=== PATIENT | female | born 1965 | race Caucasian/White ===

== ENCOUNTER 2024-08-26 09:19 | Emergency (ER) | payer OTHER, MEDICAID, SELFPAY ==
[2024-08-26 09:22] VITALS: BMI 53.1
[2024-08-26 09:31] VITALS: BP 166/105; PULSE 100; RESP 19; TEMP 36.9; O2SAT 95
--- NOTE | 2024-08-26 09:31 | EDNOTE_ITS ---
Upper Extremity Injury RME/HPI General Chief Complaint: Extremity Injury, Upper Stated Complaint: RIGHT WRIST INJURY FROM A FALL Time Seen by Provider: 08/26/24 09:23 Source: patient, RN notes reviewed and old records reviewed Arrival date/time: 08/26/24 09:19 Mode of arrival: ambulatory Limitations: no limitations RME / HPI RME / HPI narrative: 59yof presents to ED for wrist pain s/p injury this morning. Patient reports mechanical trip and fall at home landing on outstretched right wrist. No deformity or numbness/tingling reported. 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 Related Data Home Medications ?Medication ?Instructions ?Recorded ?Confirmed alprazolam 1 mg tablet 0.5 - 1 mg PO QDAY PRN Anxiety 12/03/21 07/02/24 nifedipine 60 mg tablet,extended 60 mg PO QDAY 12/03/21 07/02/24 release 24 hr pregabalin 100 mg capsule 100 mg PO TID 12/03/21 07/02/24 tizanidine 4 mg tablet 4 mg PO BID 12/03/21 07/02/24 albuterol sulfate 90 mcg/actuation 2 puff inhalation TID 01/07/23 07/02/24 aerosol inhaler duloxetine 60 mg capsule,delayed 60 mg PO BID 01/07/23 07/02/24 release lisinopril 40 mg tablet (Zestril) 40 mg PO QDAY 01/07/23 07/02/24 buspirone 30 mg tablet 30 mg PO BID 01/29/23 07/02/24 montelukast 10 mg tablet 10 mg PO HS 01/29/23 07/02/24 oxybutynin chloride 5 mg tablet 5 mg PO BID 01/29/23 07/02/24 rosuvastatin 20 mg tablet 20 mg PO QDAY 01/29/23 07/02/24 trazodone 100 mg tablet 50 mg PO HS PRN Insomnia 01/29/23 07/02/24 hydrochlorothiazide 12.5 mg tablet 12.5 mg PO QDAY 09/27/23 07/02/24 omeprazole 40 mg capsule,delayed 40 mg PO QDAY 09/27/23 07/02/24 release Previous Rx's ?Medication ?Instructions ?Recorded ipratropium 0.5 mg-albuterol 3 mg 3 ml inhalation QID PRN shortness 02/01/23 (2.5 mg base)/3 mL nebulization of breath or wheezing #180 mL soln hydrocodone 5 mg-acetaminophen 325 1 tab PO Q8H PRN pain #7 tabs 07/05/24 mg tablet acetaminophen 500 mg tablet 1,000 mg (2 x 500 mg) PO Q6H PRN 08/26/24 (Tylenol Extra Strength) pain #30 tabs ibuprofen 600 mg tablet 600 mg PO Q6H PRN pain #30 tabs 08/26/24 Allergies Allergy/AdvReac Type Severity Reaction Status Date / Time No Known Allergies Allergy Verified 11/23/22 07:52 Review of Systems Review of Systems Systems Reviewed: All systems reviewed, normal except as documented Musculoskeletal Musculoskeletal: Reports arthralgias, Reports joint swelling, Reports limited range of motion, Denies numbness and Denies tingling Neurologic Neurologic: Denies numbness and Denies tingling Past Medical History Past Medical History NEUROLOGIC: Positive Head Trauma CARDIAC: Positive Angina (with cough and copd.), Hypercholesterolemia, Edema (occasionally) and Hypertension RESPIRATORY: Positive Chronic Obstructive Pulmonary Disease (COPD), Asthma, Bronchitis, Pneumonia and Sleep Apnea GASTROINTESTINAL: Positive Gastrointestinal Disorders (constipation.), Hiatal Hernia, Hemorrhoids, Gastroesophageal Reflux Disease and Obesity REPRODUCTIVE: Positive Previous Pregnancies (1 , x2 miscarriages) MUSCULOSKELETAL: Positive Musculoskeletal Disorders (broken screw in neck, surgeryx2 to neck), Arthritis, Carpal Tunnel Syndrome, Fractures and Degenerative Joint Disease ENT: Positive Cataracts and Head Trauma HEMATOLOGIC: Positive Blood Disorders and Anemia (resolved with iron infusions.) PSYCHO/SOCIAL: Positive Depression and Anxiety OTHER HISTORY: Positive Hospitalization, Blood Transfusions (x3), Chicken Pox, Measles and Mumps Family History FAMILY HISTORY: Positive Family Respiratory Disorders, Family Cardiac Disorders (brother had ND, mother has stents.) and Family Surgery Surgical History SURGICAL: Positive Tonsillectomy, Abdominal Surgery, Joint Replacement (to left elbow.), Hysterectomy and Tubal Ligation Social History SMOKING STATUS: Former smoker SECOND HAND EXPOSURE: No SUBSTANCE USE: does not use ED Exam General Limitations: Present no limitations General appearance: Present alert, in no apparent distress and obese Head Head exam: Present atraumatic and normocephalic Eye Eye exam: Present normal appearance, PERRL and EOMI ENT ENT exam: Present normal exam and mucous membranes moist Neck Neck exam: Present normal inspection and full ROM Chest Chest inspection: Present normal inspection and symmetric chest wall rise Respiratory Respiratory exam: Present normal lung sounds bilaterally; Absent respiratory distress Cardiovascular Cardiovascular exam: Present regular rate and normal rhythm Extremities Exam Extremities exam: Present other (Mild tenderness and swelling to right wrist. Limited ROM 2/2 pain. Able to wiggle all fingers. 2+ radial pulses, sensation intact) Neurological Exam Neurological exam: Present alert and oriented X3 Psychiatric Psychiatric exam: Present normal affect and normal mood Skin Skin exam: Present warm, dry, intact and normal color Course Quality Measures none Orders Category Date Time Status Splint / Immobilizer STAT Care 08/26/24 10:53 Completed XR wrist comp RT min 3V Stat Exams 08/26/24 09:32 Completed HYDROcodone*/APAP 7.5/325 [[place] 7.5/325] Med 08/26/24 09:32 Discontinued 1 tab PO X1 ONE Ketorolac Inj [Toradol Inj] Med 08/26/24 10:55 Discontinued 30 mg IM X1 ONE Vital Signs Vital signs: Vital Signs Temperature 98.5 F 08/26/24 09:31 Pulse Rate 100 08/26/24 09:31 Respiratory Rate 19 08/26/24 09:31 Blood Pressure 166/105 H 08/26/24 09:31 Pulse Oximetry (%) 95 08/26/24 09:31 Oxygen Delivery Method Room Air 08/26/24 09:31 Procedures -ED Splint Fabrication: Clinician Made Type: Volar Reason for Splint: Improve Function, Pain Management, Prevent Deformities and Support Joint/Muscle Circulation Distal to Splint: Yes Movement Distal to Splint: Yes Senation Distal to Splint: Yes Tolerance: Tolerates Well Extremity Injury MDM Narrative MDM Narrative:: 59yof presents to ED for wrist pain s/p injury this morning. Patient reports mechanical trip and fall at home landing on outstretched right wrist. No deformity or numbness/tingling reported. 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 Patient is neurovascularly intact, compartments soft. Encouraged RICE therapy, motrin/tylenol prn pain. Ortho referral given for follow up and further mgmt. Stable for dc, RTED precautions given. Patient data External records reviewed:: [facility] previous records (07/02/2024 ED visit for renal injury) Clinical information provided by:: patient Social determinants that could affect healthcare access:: none Patient has the following chronic illnesses:: Obesity arthritis, DJD How is presenting disease/condition affected by chronic disease/condition?: exacerbated by Evaluation data The following diagnostics were reviewed and interpreted by me:: radiology exam(s) Lab and/or radiology exams considered but not ordered:: None Interpretation Summary: Wrist x-rays: Distal radius fracture per my read Medications / Prescriptions Medications or Prescriptions considered but not ordered:: None Medication administrations:: Medication Administration History Discontinued Medications Hydrocodone Bitart/Acetaminophen (Hydrocodone/[place] 7.5/325 Tablet) 1 tab PO X1 ONE Stop: 08/26/24 09:33 Last Admin: 08/26/24 09:42 Dose: 1 tab Documented By: AZUCENA Ketorolac Tromethamine (Ketorolac Inj 60 Mg/2 Ml Vial) 30 mg IM X1 ONE Stop: 08/26/24 10:56 Last Admin: 08/26/24 11:22 Dose: 30 mg Documented By: AZUCENA Above medication administered in ED Consultations Consultation(s) initiated? (list below): No Diagnosis Upper Extremity Injury Differential Diagnosis: other (Fracture, sprain, strain, contusion, MSK pain) Most likely diagnosis given after review of the tests above:: Distal radius fracture Admission Indicated Admission indicated?: not indicated Admission Request Was there a request for admission?: No Disposition Plan Disposition Plan: Discharge Discharge Attestation Discharge Attestation: The patient and all family members were given an opportunity to ask questions and understood the discharge instructions. Discharge instructions specifically effects, indications for sooner follow up or return to the emergency department, and the expected course of current diagnosis. Patient condition: Stable Discharge Plan Plan Patient Disposition: HOME (Self Care) Patient condition on transfer: Stable Prescriptions/Referrals Prescriptions/Med Rec: New ibuprofen 600 mg tablet 600 mg PO Q6H PRN (Reason: pain) Qty: 30 0RF acetaminophen [Tylenol Extra Strength] 500 mg tablet 1,000 mg PO Q6H PRN (Reason: pain) Qty: 30 0RF No Action alprazolam 1 mg tablet 0.5 - 1 mg PO QDAY PRN (Reason: Anxiety) Hold Instructions: Resume on 01/08/23. Patient Comments: TAKE 1/2-1 TABLET BY MOUTH EVERY DAY NEEDED tizanidine 4 mg tablet 4 mg PO BID nifedipine 60 mg tablet extended release 24 hr 60 mg PO QDAY pregabalin 100 mg capsule 100 mg PO TID Patient Comments: TAKE 1 CAPSULE BY MOUTH THREE TIMES A DAY trazodone 100 mg tablet 50 mg PO HS PRN (Reason: Insomnia) Rx Instructions: 50mg at bedtime as needed buspirone 30 mg tablet 30 mg PO BID montelukast 10 mg tablet 10 mg PO HS oxybutynin chloride 5 mg tablet 5 mg PO BID rosuvastatin 20 mg tablet 20 mg PO QDAY ipratropium-albuterol 0.5 mg-3 mg(2.5 mg base)/3 mL solution for nebulization 3 ml inhalation QID PRN (Reason: shortness of breath or wheezing) Qty: 180 0RF hydrocodone-acetaminophen 5-325 mg tablet 1 tab PO Q8H MDD 3 tab PRN (Reason: pain) Qty: 7 0RF albuterol sulfate 90 mcg/actuation HFA aerosol inhaler 2 puff INHALATION TID lisinopril [Zestril] 40 mg tablet 40 mg PO QDAY duloxetine 60 mg capsule,delayed release(DR/EC) 60 mg PO BID omeprazole 40 mg Capsule,Delayed Release(Dr/Ec) 40 mg PO QDAY Rx Instructions: 30 minutes before morning meal hydrochlorothiazide 12.5 mg Tablet 12.5 mg PO QDAY Referrals: Fidelina Vaughn MD [Primary Care Provider] - In 1 week Ron Fields MD [Physician] - In 1 week (Call to schedule an appointment for a visit.) Problem List Clinical Impression: Closed fracture of right distal radius, Right wrist pain Patient/Caregiver Discharge Instructions Education Materials: Wrist Fracture Print Language: Irish Stand Alone Forms: Rocio Award Info., Patient Portal Info Letter PA/DAWOOD Supervising Physician JOSH/EXPORT FREIGHT CLERK Supervising Physician: Monica
--- NOTE | 2024-08-26 09:32 | XR_ITS ---
Examination: Wrist, right 3 views Technique: Wrist AP, oblique, lateral 3 views Date and time of exam: August 26, 2024 0934 hrs. Indications: Patient fell last night with injury to the wrist, wrist pain Findings: Prominent osteopenia Acute intra-articular fracture distal radius without significant displacement Carpal bones intact Impression: Acute intra-articular fracture distal radial metaphysis
[2024-08-26] MEDS: HYDROcodone/APAP 7.5/325 TABLET 1 TAB PO (09:42)
[2024-08-26] MEDS: KETOROLAC INJ 60 MG/2 ML VIAL 30 MG IM (11:22)
== END 2024-08-26 11:57 | disposition home or self-care (01) ==
PROVIDERS: Emergency Provider Emergency Medicine; PCP Family Medicine
DX: S52.571A Other intraarticular fracture of lower end of right radius, initial encounter for closed fracture (principal); W01.0XXA Fall on same level from slipping, tripping and stumbling without subsequent striking against object, initial encounter
CPT/HCPCS: 29125; 73110; 99283; J1885; A9270

== ENCOUNTER → 2024-11-30 | Outpatient (CLI) | payer MEDICARE, SELFPAY ==
[2024-11-30 09:30] LABS: Basophils # (Auto) 0.1 Thou/mm3 (0.0-0.2); Basophils % (Auto) 1 % (0-2.5); Eosinophils # (Auto) 0.2 Thou/mm3 (0.0-0.5); Eosinophils % (Auto) 2 % (0-10); Hemoglobin 10.8 g/dL (12.0-16.0); Immature Granulocytes % (Auto) 1 % (0-0); Immature Granulocytes Auto 0.08 Thou/mm3 (0.00-0.00); Immature Reticulocyte Fraction 27.6 % (3.0-15.9); Lymphocytes # (Auto) 2.8 Thou/mm3 (1.0-4.8); Lymphocytes % (Auto) 23 % (10-50); Mean Corpuscular HGB Conc 31.8 g/dl (31.0-37.0); Mean Corpuscular Hemoglobin 24.1 pg (25.0-35.0); Mean Corpuscular Volume 76 fL (80-100); Monocytes # (Auto) 0.8 Thou/mm3 (0.0-0.8); Monocytes % (Auto) 7 % (0-12); Neutrophils # (Auto) 8.2 Thou/mm3 (1.8-7.7); Neutrophils % (Auto) 67 % (37-80); Nucleated Red Blood Cell % 0 /100 WBC (0); Platelet Count 312 Thou/mm3 (140-440); RDW Standard Deviation 48.9 fL (36.4-46.3); Red Blood Count 4.49 Miln/mm3 (4.00-5.20); Reticulocyte Absolute Auto 87.6 Biln/L (25.0-75.0); Reticulocyte Hgb Content 28.1 pg (28.0-35.0); White Blood Count 12.2 Thou/mm3 (3.6-11.0)
[2024-11-30 09:44] LABS: Glucose Estimated Average 128 mg/dL (80-131); Hemoglobin A1C 6.1 % Hgb (4.8-6.0)
[2024-11-30 09:50] LABS: Folate 6.01 ng/mL (>5.38); Vitamin B12 358 pg/mL (211-911)
[2024-11-30 09:54] LABS: Ferritin 9 ng/mL (7.3-270.7); Iron 28 mcg/dL (50-170); Percent Iron Saturation 7 % (20-55); T4 (Thyroxine) 6.3 mcg/dL (4.5-10.9); Total Iron Binding Capacity 381 mcg/dL (250-425); Unsaturated Iron Binding 353 (225-295)
[2024-11-30 10:08] LABS: Alanine Aminotransferase 14 U/L (10-49); Albumin, Serum 4.5 gm/dL (3.4-4.8); Albumin/Globulin Ratio 2.4 (1.2-2.2); Alkaline Phosphatase 81 U/L (46-116); Anion Gap 9 (7-16); Aspartate Amino Transferase 17 U/L (0-34); BUN/Creatinine Ratio 15 Ratio (12-20); Bilirubin,Total 0.4 mg/dL (0.3-1.2); Blood Urea Nitrogen 17 mg/dL (9-23); Carbon Dioxide 26.7 mMol/L (20.0-31.0); Cardiac Risk Estimate 1.6 RATIO (3.7-5.6); Chloride 97 mMol/L (98-107); Cholesterol 190 mg/dL (132-200); Creatinine (Component) 1.1 mg/dL (0.6-1.3); Globulin 1.9 gm/dL (2.3-3.5); Glucose 98 mg/dL (74-106); HDL Cholesterol 117 mg/dL (40-60); LDL Cholesterol,Calculated 41 mg/dL (0-130); Lipase 22 U/L (12-53); Osmolality,Calculated 267 (275-295); Potassium 3.8 mMol/L (3.4-5.1); Sodium 133 mMol/L (136-145); Thyroid Stimulating Hormone 1.84 uIU/mL (0.55-4.78); Total Protein 6.4 gm/dL (5.7-8.2); Triglycerides 161 mg/dL (30-150); eGFR 58 See Note
== END | disposition home or self-care (01) ==
PROVIDERS: PCP Family Medicine; Referring Provider Family Medicine; Visit Provider Family Medicine
DX: Z12.11 Encounter for screening for malignant neoplasm of colon (principal); D50.9 Iron deficiency anemia, unspecified; I10 Essential (primary) hypertension; E78.2 Mixed hyperlipidemia; R79.9 Abnormal finding of blood chemistry, unspecified
CPT/HCPCS: 36415; 80053; 80061; 82607; 82728; 82746; 83036; 83540; 83550; 83690; 84436; 84443; 85025; 85046

== ENCOUNTER → 2024-12-17 | Outpatient (CLI) | payer MEDICARE, MEDICAID, SELFPAY ==
--- NOTE | 2024-12-17 10:42 | XR_ITS ---
Examination: PA lateral chest 2 views TECHNIQUE: Upright PA lateral chest 2 views Exam date and time: December 17, 2024 1057 hours Comparison July 02, 2024 INDICATIONS: Difficulty breathing, shortness or breath, diagnosis acute upper respiratory infection FINDINGS: Mild chronic heart failure Multiple axial cardiac contour Prominent vascular congestion Subtle edema at the lung bases Moderate osteopenia IMPRESSION: Mild chronic heart failure
--- NOTE | 2024-12-17 11:00 | XR_ITS ---
Examination: Screening digital mammography, bilateral Computer aided detection 3-D breast Tomosynthesis, bilateral Date and time of exam: 12/17/2024, 10:40 AM Comparisons: 07/08/2023 Indications: Screening Technique: Nonmagnified MLO, CC views of the breasts to been obtained, reconstructed from 3-D Tomosynthesis images. R2 computer aided detection program utilized for evaluation of suspicious masses and/or abnormal calcifications. 3-D Tomosynthesis images obtained. Technologist: Findings: There are scattered areas of fibroglandular density. Bilateral subpectoral silicone implants appear intact. No evidence of abnormal masses or suspicious calcifications. Impression: BI-RADS category 3: Probably benign, short term follow-up
== END | disposition home or self-care (01) ==
PROVIDERS: PCP Nurse Practitioner Family; Referring Provider Family Medicine; Visit Provider Family Medicine
DX: Z12.31 Encounter for screening mammogram for malignant neoplasm of breast (principal); R92.333 Mammographic heterogeneous density, bilateral breasts; I50.89 Other heart failure
CPT/HCPCS: 71046; 77063; 77067

== ENCOUNTER 2025-01-22 17:53 | Emergency (ER) | payer MEDICARE, MEDICAID, SELFPAY ==
[2025-01-22 17:58] VITALS: BP 122/66; PULSE 101; RESP 17; TEMP 36.9; O2SAT 93
[2025-01-22 17:59] VITALS: O2SAT 95; BMI 47.7
--- NOTE | 2025-01-22 18:07 | PD.EDSOB ---
ED SOB =RME/HPI General Chief Complaint: Fall Stated Complaint: SOB AND FALL Time Seen by Provider: 01/22/25 18:10 Arrival date/time: 01/22/25 17:53 RME / HPI RME / HPI Narrative: This section includes all my notes and documentations, including HPI, PE, and ED course. Hardeep Head MD HPI: 59 y/o female with Hx of COPD and Asthma presented to ED c/o worsening cough with yellowish/greenish sputum and shortness of breath x 5 days. In addition, patient fell onto her right wrist just [employer] after mechanical fall. No chest pain. No fever. No ther complaints. ROS: All negative except as documented in HPI. Physical Exam: General: Alert and oriented. No acute distress remained stable. Eyes: Conjunctivae and lids clear. EOMI. PERRL. ENT: No signs of head trauma. Neck: Supple. No tenderness. Heart: Irregularly irregular (100 bpm). Lungs: No respiratory distress. Moderately decreased air movement with rhonchi. Chest: No tenderness. Abdomen: Soft and nontender. Normal bowel sounds. No distension. No rebound or guarding. Back: No tenderness. Legs: No clubbing, cyanosis, edema. Skin: Warm and dry. Neuro: Alert and oriented X 3. Cranial Nerves II-XII grossly intact. No peripheral motor deficits. Musculoskeletal: Equivocal right wrist tenderness. All other major joints and bones are not tender with no limited ROM. I reviewed EMS notes. I reviewed all diagnostic test results. My interpretation of the EKG is: Atrial fibrillation (100 bpm) with nonspecific ST-T changes. My interpretation of the chest x-ray is no acute findings. My interpretation of the right wrist x-ray is no acute fracture. Blood tests and urine tests unremarkable. At this point, diagnoses include Right wrist sprain, COPD exacerbation. Treatment here included IV fluid, Albuterol/Ipratroprium Duoneb, Morphine, Rocephin, and right wrist splint. Significant improvement noted. Recommend outpatient treatment. Based on my best medical judgment, made decision no further evaluation or treatment indicated at this time. Patient understands and agrees to the discharge instructions customized and printed, see below. Discharge instructions from Dr. Head: --Fortunately, there is no very serious injury from your fall. --But your shortness of breath is due to COPD flareup. --No physical exertion for 3 days to help rest the lungs. ?No smoking or exposure to smoking or pets or dust or cold or humidity. --Zithromax and cefdinir to kill the germs causing the bronchitis. --Prednisone to help decrease the swelling in the airways. --Albuterol 2 puffs or neb treatment every 4-6 hours for 3 days to help keep the airways open. Then as needed for cough or shortness of breath. --For your right wrist sprain, wear the wrist splint for 3 days then as needed. Apply ice for 20 minutes every 2-3 hours today and tomorrow. Ibuprofen 400 mg every 6-8 hours today and tomorrow to decrease inflammation then as needed. Elevate above the heart level for 3 days is much as possible, placing your hand on your head is a good method. --See a private doctor on 01/25/2025 for recheck and further care. If you are still having significant right wrist pain, you may need more imaging studies. Ask for help until you are completely better. --Seek immediate medical care with worsening or with any concerns. Hardeep Head MD Related Data Home Medications ?Medication ?Instructions ?Recorded ?Confirmed alprazolam 1 mg tablet 0.5 - 1 mg PO QDAY PRN Anxiety 12/03/21 07/02/24 nifedipine 60 mg tablet,extended 60 mg PO QDAY 12/03/21 07/02/24 release 24 hr pregabalin 100 mg capsule 100 mg PO TID 12/03/21 07/02/24 tizanidine 4 mg tablet 4 mg PO BID 12/03/21 07/02/24 albuterol sulfate 90 mcg/actuation 2 puff inhalation TID 01/07/23 07/02/24 aerosol inhaler duloxetine 60 mg capsule,delayed 60 mg PO BID 01/07/23 07/02/24 release lisinopril 40 mg tablet (Zestril) 40 mg PO QDAY 01/07/23 07/02/24 buspirone 30 mg tablet 30 mg PO BID 01/29/23 07/02/24 montelukast 10 mg tablet 10 mg PO HS 01/29/23 07/02/24 oxybutynin chloride 5 mg tablet 5 mg PO BID 01/29/23 07/02/24 rosuvastatin 20 mg tablet 20 mg PO QDAY 01/29/23 07/02/24 trazodone 100 mg tablet 50 mg PO HS PRN Insomnia 01/29/23 07/02/24 hydrochlorothiazide 12.5 mg tablet 12.5 mg PO QDAY 09/27/23 07/02/24 omeprazole 40 mg capsule,delayed 40 mg PO QDAY 09/27/23 07/02/24 release Previous Rx's ?Medication ?Instructions ?Recorded ipratropium 0.5 mg-albuterol 3 mg 3 ml inhalation QID PRN shortness 02/01/23 (2.5 mg base)/3 mL nebulization of breath or wheezing #180 mL soln hydrocodone 5 mg-acetaminophen 325 1 tab PO Q8H PRN pain #7 tabs 07/05/24 mg tablet acetaminophen 500 mg tablet 1,000 mg (2 x 500 mg) PO Q6H PRN 08/26/24 (Tylenol Extra Strength) pain #30 tabs ibuprofen 600 mg tablet 600 mg PO Q6H PRN pain #30 tabs 08/26/24 azithromycin 500 mg tablet 500 mg PO QDAY 3 days #3 tabs 01/22/25 (Zithromax TRI-JUN) cefdinir 300 mg capsule 300 mg PO BID #14 caps 01/22/25 prednisone 50 mg tablet 50 mg PO QDAY #3 tabs 01/22/25 Allergies Allergy/AdvReac Type Severity Reaction Status Date / Time No Known Allergies Allergy Verified 01/22/25 18:12 Review of Systems Review of Systems Systems Reviewed: All systems reviewed, normal except as documented Past Medical History Past Medical History NEUROLOGIC: Positive Head Trauma CARDIAC: Positive Cardiac Disorders, Angina, Hypercholesterolemia, Edema and Hypertension RESPIRATORY: Positive Chronic Obstructive Pulmonary Disease (COPD), Asthma, Bronchitis, Pneumonia and Sleep Apnea GASTROINTESTINAL: Positive Gastrointestinal Disorders, Hiatal Hernia, Hemorrhoids, Gastroesophageal Reflux Disease and Obesity REPRODUCTIVE: Positive Previous Pregnancies MUSCULOSKELETAL: Positive Musculoskeletal Disorders, Arthritis, Carpal Tunnel Syndrome, Fractures and Degenerative Joint Disease ENT: Positive Head Trauma HEMATOLOGIC: Positive Blood Disorders and Anemia PSYCHO/SOCIAL: Positive Depression and Anxiety OTHER HISTORY: Positive Hospitalization, Blood Transfusions, Chicken Pox, Measles and Mumps Family History FAMILY HISTORY: Positive Family Respiratory Disorders, Family Cardiac Disorders and Family Surgery Surgical History SURGICAL: Positive Abdominal Surgery, Joint Replacement (NECK SURGERY, COLLARBONE SURGERY, BACK SURGERY), of Shoulder Sx (L SHOULDER), of Back Surgery, Hysterectomy and Tubal Ligation ED Exam Narrative Physical exam: Refer to HPI above Course Course Course Narrative: CXR is ordered for determining the etiology of shortness of breath. Quality Measures none Orders Category Date Time Status Bedside COVID-19 Antigen Test NOW Care 01/22/25 18:13 Active Bedside Influenza A&B Antigen Test NOW Care 01/22/25 18:13 Completed EKG (ED ONLY) *Do not use* NOW Care 01/22/25 18:12 Completed Saline [Insert IV] NOW Care 01/22/25 18:13 Active Splint / Immobilizer STAT Care 01/22/25 19:56 Active Straight [In and Out Catheter] X1 Care 01/22/25 18:13 Completed EKG (ED Only) Stat Exams 01/22/25 18:12 Draft XR chest 1V portable Stat Exams 01/22/25 18:14 Completed XR wrist comp RT min 3V Stat Exams 01/22/25 18:14 Completed ABG [Arterial Blood Gas] Stat Lab 01/22/25 18:55 Completed BNP [B-Type Natriuretic Peptide] Stat Lab 01/22/25 18:30 Completed CBC Stat Lab 01/22/25 18:30 Completed CMP [Comprehensive Metabolic Panel] Stat Lab 01/22/25 18:30 Completed D-Dimer Stat Lab 01/22/25 18:30 Completed Free T4 (Free Thyroxine) Stat Lab 01/22/25 18:30 Completed Magnesium Stat Lab 01/22/25 18:30 Completed TSH [Thyroid Stimulating Hormone] Stat Lab 01/22/25 18:30 Completed Troponin I Stat Lab 01/22/25 18:30 Completed UA, C/S IF [Urinalysis, C/S if Indicated] Stat Lab 01/22/25 18:45 Completed Albuterol/Ipratr Rt Virgen [Duoneb Rt Virgen] Med 01/22/25 18:13 Discontinued 3 ml INH X1 ONE Azithromycin Po [Zithromax PO] Med 01/22/25 19:56 Discontinued 500 mg PO X1 ONE MethylPREDNISolone.* [SoluMEDROL Inj] Med 01/22/25 18:13 Discontinued 125 mg IVP X1 ONE Morphine Inj Med 01/22/25 18:13 Discontinued 2 mg IVP X1 ONE cefTRIAXone/D5w 1gm IV premix [Rocephin/D5w 1gm IV Med 01/22/25 19:56 Active premix] 1 gm in 50 ml IV X1 Vital Signs Vital signs: Vital Signs Temperature 98.4 F 01/22/25 17:58 Pulse Rate 101 H 01/22/25 17:58 Respiratory Rate 17 01/22/25 17:58 Blood Pressure 122/66 01/22/25 17:58 Pulse Oximetry (%) 93 L 01/22/25 17:58 Oxygen Delivery Method Nasal Cannula 01/22/25 17:58 Oxygen Flow Rate 5 01/22/25 17:58 Shortness of Breath / Dyspnea MDM Narrative MDM Narrative:: Scribe Attestation: ICathy, am scribing for and in the presence of Dr. Head. Provider Notation: Although this document has been carefully reviewed, there may still be some phonetic and other typographical errors.? These errors are purely grammatical due to imperfections in the software program and should not be construed in any way to? compromise the substance of the patient's medical care during this visit. 59 y/o female with Hx of COPD and Asthma presented to ED c/o worsening cough with sputum and shortness of breath x 5 days. In addition, patient fell onto her right wrist just [employer]. Patient data External records reviewed:: [facility] previous records ( Prior ED records reviewed from 08/26/24. Patient was seen for Closed fracture of right distal radius.) and EMS form Clinical information provided by:: patient and EMS Social determinants that could affect healthcare access:: none Patient has the following chronic illnesses:: Angina, Hypercholesterolemia, Edema, Hypertension, Chronic Obstructive Pulmonary Disease (COPD), Asthma, Bronchitis, Pneumonia, Sleep Apnea, Hiatal Hernia, Hemorrhoids, Gastroesophageal Reflux Disease, Obesity, Arthritis, Carpal Tunnel Syndrome, Degenerative Joint Disease, Anemia, Depression and Anxiety How is presenting disease/condition affected by chronic disease/condition?: exacerbated by Evaluation data The following diagnostics were reviewed and interpreted by me:: EKG tracing(s) (My interpretation of the EKG is: Atrial fibrillation (100 bpm) with nonspecific ST-T changes. Hardeep Head MD) Lab and/or radiology exams considered but not ordered:: None Interpretation Summary: I reviewed all diagnostic test results. My interpretation of the EKG is: Atrial fibrillation (100 bpm) with nonspecific ST-T changes. My interpretation of the chest x-ray is no acute findings. My interpretation of the right wrist x-ray is no acute fracture. Blood tests and urine tests unremarkable. Medications / Prescriptions Medications or Prescriptions considered but not ordered:: None Medication administrations:: Medication Administration History Ceftriaxone Sodium/Dextrose (Rocephin/D5w 1gm Iv Premix) 1 gm in 50 mls @ 100 mls/hr IV X1 ONE Stop: 01/22/25 20:25 Last Admin: 01/22/25 20:02 Dose: 100 mls/hr Documented By: DT Discontinued Medications Albuterol/Ipratropium (Albuterol/Ipratropium (Duoneb) Rt Virgen 3 Ml Nebu) 3 ml INH X1 ONE Stop: 01/22/25 18:14 Last Admin: 01/22/25 18:57 Dose: 3 ml Documented By: PAR Azithromycin (Azithromycin 250 Mg Tablet) 500 mg PO X1 ONE Stop: 01/22/25 19:57 Last Admin: 01/22/25 20:02 Dose: 500 mg Documented By: DT Methylprednisolone Sodium Succinate (Methylprednisolone Sod Succ 62.5 Mg/Ml 2ml Vial) 125 mg IVP X1 ONE Stop: 01/22/25 18:14 Last Admin: 01/22/25 18:49 Dose: 125 mg Documented By: GM Morphine Sulfate (Morphine Sulf Inj 10 Mg/Ml Vial) 2 mg IVP X1 ONE Stop: 01/22/25 18:14 Last Admin: 01/22/25 18:51 Dose: 2 mg Documented By: GM Albuterol/Ipratroprium Duoneb, Methylprednisolone, Morphine, Rocephin, right wrist splint. Consultations Consultation(s) initiated? (list below): No Diagnosis Shortness of Breath Differential Diagnosis: acute exacerbation of chronic obstructive airways disease, congestive heart failure, community acquired pneumonia, asthma with exacerbation, pulmonary embolism and other (Fracture, Contusion, Abrasion) Most likely diagnosis given after review of the tests above:: COPD exacerbation, Right wrist sprain. Admission Indicated Admission indicated?: not indicated Explain why admission is indicated or not indicated:: With significant improvement, there was no indication for admission. Admission Request Was there a request for admission?: No Disposition Plan Disposition Plan: Discharge Discharge Attestation Discharge Attestation: The patient and all family members were given an opportunity to ask questions and understood the discharge instructions. Discharge instructions specifically effects, indications for sooner follow up or return to the emergency department, and the expected course of current diagnosis. Patient condition: Stable Discharge Plan Plan Patient Disposition: HOME (Self Care) Prescriptions/Referrals Prescriptions/Med Rec: New prednisone 50 mg tablet 50 mg PO QDAY Qty: 3 0RF cefdinir 300 mg capsule 300 mg PO BID Qty: 14 0RF azithromycin [Zithromax TRI-JUN] 500 mg tablet 500 mg PO QDAY 3 Days Qty: 3 0RF No Action alprazolam 1 mg tablet 0.5 - 1 mg PO QDAY PRN (Reason: Anxiety) Patient Comments: TAKE 1/2-1 TABLET BY MOUTH EVERY DAY NEEDED tizanidine 4 mg tablet 4 mg PO BID nifedipine 60 mg tablet extended release 24 hr 60 mg PO QDAY pregabalin 100 mg capsule 100 mg PO TID Patient Comments: TAKE 1 CAPSULE BY MOUTH THREE TIMES A DAY trazodone 100 mg tablet 50 mg PO HS PRN (Reason: Insomnia) Rx Instructions: 50mg at bedtime as needed buspirone 30 mg tablet 30 mg PO BID montelukast 10 mg tablet 10 mg PO HS oxybutynin chloride 5 mg tablet 5 mg PO BID rosuvastatin 20 mg tablet 20 mg PO QDAY ipratropium-albuterol 0.5 mg-3 mg(2.5 mg base)/3 mL solution for nebulization 3 ml inhalation QID PRN (Reason: shortness of breath or wheezing) Qty: 180 0RF hydrocodone-acetaminophen 5-325 mg tablet 1 tab PO Q8H MDD 3 tab PRN (Reason: pain) Qty: 7 0RF albuterol sulfate 90 mcg/actuation HFA aerosol inhaler 2 puff INHALATION TID lisinopril [Zestril] 40 mg tablet 40 mg PO QDAY duloxetine 60 mg capsule,delayed release(DR/EC) 60 mg PO BID omeprazole 40 mg Capsule,Delayed Release(Dr/Ec) 40 mg PO QDAY Rx Instructions: 30 minutes before morning meal hydrochlorothiazide 12.5 mg Tablet 12.5 mg PO QDAY ibuprofen 600 mg tablet 600 mg PO Q6H PRN (Reason: pain) Qty: 30 0RF acetaminophen [Tylenol Extra Strength] 500 mg tablet 1,000 mg PO Q6H PRN (Reason: pain) Qty: 30 0RF Referrals: Fidelina Vaughn MD [Primary Care Provider] - In 1 week Problem List Clinical Impression: COPD exacerbation, Right wrist sprain Patient/Caregiver Discharge Instructions Discharge Activity: activity as tolerated Education Materials: ED COPD Flare, ED Wrist Sprain Additional Instructions: Discharge instructions from Dr. Head: --Fortunately, there is no very serious injury from your fall. --But your shortness of breath is due to COPD flareup. --No physical exertion for 3 days to help rest the lungs. ?No smoking or exposure to smoking or pets or dust or cold or humidity. --Zithromax and cefdinir to kill the germs causing the bronchitis. --Prednisone to help decrease the swelling in the airways. --Albuterol 2 puffs or neb treatment every 4-6 hours for 3 days to help keep the airways open. Then as needed for cough or shortness of breath. --For your right wrist sprain, wear the wrist splint for 3 days then as needed. Apply ice for 20 minutes every 2-3 hours today and tomorrow. Ibuprofen 400 mg every 6-8 hours today and tomorrow to decrease inflammation then as needed. Elevate above the heart level for 3 days is much as possible, placing your hand on your head is a good method. --See a private doctor on 01/25/2025 for recheck and further care. If you are still having significant right wrist pain, you may need more imaging studies. Ask for help until you are completely better. --Seek immediate medical care with worsening or with any concerns. Print Language: Guamanian Stand Alone Forms: [employer] Award Info., Patient Portal Info Letter
--- NOTE | 2025-01-22 18:12 | EKG_ITS ---
[facility] Test Date: 2025-01-22 Pat Name: JOSE ANGEL Department: Room: - Gender: Female Dentist Attendant: : 1965 Requested By: Hardeep Trujillo Order Number: [id number] Reading MD: Hardeep Trujillo Measurements Intervals [place] Rate: 100 P: [place]: QRS: 29 QRSD: 104 T: 53 QT: 339 QTc: 438 Interpretive Statements ATRIAL FIBRILLATION WITH RAPID VENTRICULAR RESPONSE LOW QRS VOLTAGE IN PRECORDIAL LEADS [QRS DEFLECTION < 1.0 mV IN CHEST LEADS] ABNORMAL RHYTHM ECG Compared to ECG 07/03/2024 18:30:02 Low QRS voltage now present Supraventricular tachycardia no longer present Intraventricular conduction delay no longer present ST (T wave) deviation no longer present /store/S0/[id number]/ecg/[id number].pdf
--- NOTE | 2025-01-22 18:14 | XR_ITS ---
Examination: Wrist, right 3 views Technique: Wrist AP, oblique, lateral 3 views Date and time of exam: January 22, 2025 1908 hours INDICATIONS: Patient fell today with injury to the wrist, wrist pain. FINDINGS: Old deformity of the distal radius On the AP view subtle radiolucency through the radial styloid Carpal bones intact IMPRESSION: Recommend one to 2 day follow-up films to exclude nondisplaced fracture through the radial styloid
--- NOTE | 2025-01-22 18:14 | XR_ITS ---
Examination: AP chest single view TECHNIQUE: Portable sitting AP chest single view Date and time: 04/24/2025 1910 hours Comparison December 17, 2024 INDICATIONS: Shortness of breath today. FINDINGS: Mild to moderate enlargement cardiac contour Pulmonary vascular redistribution No lobar pneumonia Moderate osteopenia IMPRESSION: Mild to moderate enlargement cardiac contour Pulmonary vascular redistribution
[2025-01-22 18:43] LABS: Basophils # (Auto) 0.1 Thou/mm3 (0.0-0.2); Basophils % (Auto) 0 % (0-2.5); Eosinophils # (Auto) 0.1 Thou/mm3 (0.0-0.5); Eosinophils % (Auto) 1 % (0-10); Hematocrit 29.1 % (36.0-46.0); Hemoglobin 9.2 g/dL (12.0-16.0); Immature Granulocytes % (Auto) 1 % (0-0); Immature Granulocytes Auto 0.11 Thou/mm3 (0.00-0.00); Lymphocytes # (Auto) 2.2 Thou/mm3 (1.0-4.8); Lymphocytes % (Auto) 18 % (10-50); Mean Corpuscular HGB Conc 31.6 g/dl (31.0-37.0); Mean Corpuscular Hemoglobin 24.5 pg (25.0-35.0); Mean Corpuscular Volume 78 fL (80-100); Monocytes # (Auto) 1.2 Thou/mm3 (0.0-0.8); Monocytes % (Auto) 10 % (0-12); Neutrophils # (Auto) 8.9 Thou/mm3 (1.8-7.7); Neutrophils % (Auto) 71 % (37-80); Nucleated Red Blood Cell % 0 /100 WBC (0); Platelet Count 250 Thou/mm3 (140-440); RDW Standard Deviation 50.9 fL (36.4-46.3); Red Blood Count 3.75 Miln/mm3 (4.00-5.20); White Blood Count 12.5 Thou/mm3 (3.6-11.0)
[2025-01-22] MEDS: MethylPREDNISolone SOD SUCC 62.5 MG/ML 2ML VIAL 125 MG IVP (18:49)
[2025-01-22 18:50] LABS: Collection Type, Urine Clean Catch
[2025-01-22] MEDS: MORPHINE SULF INJ 10 MG/ML VIAL 2 MG IVP (18:51)
[2025-01-22] MEDS: ALBUTEROL/IPRATROPIUM (Duoneb) RT SOL 3 ML NEBU INH (18:57)
[2025-01-22 18:58] VITALS: PULSE 103; RESP 18; O2SAT 97
[2025-01-22 18:58] LABS: D-Dimer 658 ng/mL (<600)
[2025-01-22 19:01] LABS: Bilirubin,Urine Negative (Negative); Blood,Urine Negative (Negative); Clarity,Urine Clear (Clear/Hazy); Color,Urine Lt-Yellow (Lt Yel-Yel); Culture Indicated,Urine Not Indicated; Glucose, Urine Negative (Negative); Hyaline Casts,Urine < 1 /hpf (0-1); Ketones,Urine Negative (Negative); Leukocyte Esterase,Urine Negative (Negative); Nitrite,Urine Negative (Negative); Protein,Urine Negative (Neg - Trace); RBC,Urine < 1 /hpf (0-3); Specific Gravity,Urine 1.012 (1.001-1.035); Squamous Epithelial Cell,Urine < 1 /hpf (0-5); Urobilinogen,Urine Negative mg/dL (0.0-1.0); WBC,Urine 1 /hpf (0-5)
[2025-01-22 19:02] LABS: B-Type Natriuretic Peptide < 20 pg/mL (0-100)
[2025-01-22 19:02] LABS: Allen Test Performed/OK; Base Excess -2 (-3-3); HCO3 25 mEq/L (20-26); Inspired O2, VO2 Liters 5 L/min; O2 Saturation 91 % (91-98); PCO2 48 mmHg (32.0-48.0); PO2 70 mmHg (83-108); Puncture Site Left Radial; pH, Arterial 7.32 (7.35-7.45)
[2025-01-22 19:06] LABS: Alanine Aminotransferase 20 U/L (10-49); Albumin, Serum 4.5 gm/dL (3.4-4.8); Albumin/Globulin Ratio 2.3 (1.2-2.2); Alkaline Phosphatase 62 U/L (46-116); Anion Gap 11 (7-16); Aspartate Amino Transferase 25 U/L (0-34); BUN/Creatinine Ratio 9 Ratio (12-20); Bilirubin,Total 0.4 mg/dL (0.3-1.2); Blood Urea Nitrogen 13 mg/dL (9-23); Calcium 8.4 mg/dL (8.3-10.6); Calcium (Corrected) 8.4 mg/dL (8.5-10.1); Carbon Dioxide 24.4 mMol/L (20.0-31.0); Chloride 99 mMol/L (98-107); Creatinine (Component) 1.5 mg/dL (0.6-1.3); Estimated Creatinine Clearance 61.9 mL/min (>60); Free T4 (Free Thyroxine) 1.17 ng/dL (0.89-1.76); Glucose 129 mg/dL (74-106); Osmolality,Calculated 270 (275-295); Potassium 4.4 mMol/L (3.4-5.1); Sodium 134 mMol/L (136-145); Total Protein 6.5 gm/dL (5.7-8.2); Troponin I < 0.020 ng/mL (0.0-0.045); eGFR 40 See Note
[2025-01-22 19:22] VITALS: BP 102/59; PULSE 102; RESP 18; TEMP 37; O2SAT 95
[2025-01-22] MEDS: cefTRIAXone/D5w 1gm IV premix 1 GM/50 ML BAG IV (20:02)
[2025-01-22] MEDS: AZITHROMYCIN 250 MG TABLET 500 MG PO (20:02)
[2025-01-22 20:36] VITALS: BP 115/75; PULSE 95; RESP 18; TEMP 36.9; O2SAT 96
== END 2025-01-22 20:39 | disposition home or self-care (01) ==
PROVIDERS: Emergency Provider Emergency Medicine; PCP Family Medicine
DX: J44.1 Chronic obstructive pulmonary disease with (acute) exacerbation (principal); S63.501A Unspecified sprain of right wrist, initial encounter; W19.XXXA Unspecified fall, initial encounter
CPT/HCPCS: 51701; 36415; 36600; 71045; 73110; 80053; 81001; 82803; 83735; 83880; 84439; 84443; 84484; 85025; 85379; 87400; 87811; 94640; 96365; 96375; 99284; A9270; J0696; J2270; J2919

== ENCOUNTER → 2025-02-13 | Outpatient (CLI) | payer MEDICARE, MEDICAID, SELFPAY ==
[2025-02-13 09:33] LABS: Alanine Aminotransferase 20 U/L (10-49); Albumin, Serum 4.4 gm/dL (3.4-4.8); Albumin/Globulin Ratio 2.4 (1.2-2.2); Alkaline Phosphatase 58 U/L (46-116); Anion Gap 13 (7-16); Aspartate Amino Transferase 20 U/L (0-34); BUN/Creatinine Ratio 15 Ratio (12-20); Bilirubin,Total 0.4 mg/dL (0.3-1.2); Blood Urea Nitrogen 17 mg/dL (9-23); Calcium 9.1 mg/dL (8.3-10.6); Calcium (Corrected) 9.1 mg/dL (8.5-10.1); Carbon Dioxide 23.9 mMol/L (20.0-31.0); Chloride 103 mMol/L (98-107); Creatinine (Component) 1.1 mg/dL (0.6-1.3); Globulin 1.8 gm/dL (2.3-3.5); Glucose 140 mg/dL (74-106); Osmolality,Calculated 282 (275-295); Potassium 4.6 mMol/L (3.4-5.1); Sodium 140 mMol/L (136-145); Total Protein 6.2 gm/dL (5.7-8.2); eGFR 58 See Note
[2025-02-13 09:56] LABS: Basophils % (Auto) 0 % (0-2.5); Eosinophils # (Auto) 0.2 Thou/mm3 (0.0-0.5); Eosinophils % (Auto) 2 % (0-10); Hematocrit 31.6 % (36.0-46.0); Hemoglobin 10.1 g/dL (12.0-16.0); Immature Granulocytes % (Auto) 0 % (0-0); Immature Granulocytes Auto 0.01 Thou/mm3 (0.00-0.00); Immature Reticulocyte Fraction 16.7 % (3.0-15.9); Lymphocytes % (Auto) 30 % (10-50); Mean Corpuscular Volume 78 fL (80-100); Monocytes # (Auto) 0.6 Thou/mm3 (0.0-0.8); Monocytes % (Auto) 8 % (0-12); Neutrophils % (Auto) 59 % (37-80); Nucleated Red Blood Cell % 0 /100 WBC (0); Platelet Count 193 Thou/mm3 (140-440); RDW Standard Deviation 52.3 fL (36.4-46.3); Red Blood Count 4.04 Miln/mm3 (4.00-5.20); Reticulocyte % (Auto) 1.7 % (0.5-1.5); Reticulocyte Absolute Auto 69.5 Biln/L (25.0-75.0); Reticulocyte Hgb Content 28.1 pg (28.0-35.0); White Blood Count 6.7 Thou/mm3 (3.6-11.0)
[2025-02-13 10:14] LABS: Ferritin 15 ng/mL (7.3-270.7); Iron 28 mcg/dL (50-170); Percent Iron Saturation 7 % (20-55); Total Iron Binding Capacity 376 mcg/dL (250-425); Unsaturated Iron Binding 348 (225-295)
[2025-02-13 11:39] LABS: Folate 9.99 ng/mL (>5.38); Vitamin B12 359 pg/mL (211-911)
== END | disposition home or self-care (01) ==
LOC: SCTO 08:42
PROVIDERS: PCP Family Medicine; Referring Provider Nurse Practitioner Family; Visit Provider Nurse Practitioner Family
DX: D50.9 Iron deficiency anemia, unspecified (principal)
CPT/HCPCS: 36415; 80053; 82607; 82728; 82746; 83540; 83550; 85025; 85046

== ENCOUNTER 2025-02-18 11:23 | Outpatient (RCR) | payer MEDICARE, MEDICAID, SELFPAY | END 2025-03-11 23:59 | disposition home or self-care (01) | LOC: SCTC 11:23 | PROVIDERS: PCP Family Medicine; Referring Provider Family Medicine; Visit Provider Nurse Practitioner Family | DX: D50.9 Iron deficiency anemia, unspecified (principal); E66.9 Obesity, unspecified; J44.9 Chronic obstructive pulmonary disease, unspecified; E04.1 Nontoxic single thyroid nodule | CPT/HCPCS: 99212; G0463 ==

== ENCOUNTER 2025-04-09 13:04 | Outpatient (RCR) | payer MEDICARE, MEDICAID, SELFPAY | END 2025-04-11 23:59 | disposition home or self-care (01) | LOC: SCTC 13:04 | PROVIDERS: PCP Family Medicine; Referring Provider Internal Medicine Hematology & Oncology; Visit Provider Internal Medicine Hematology & Oncology | DX: D50.9 Iron deficiency anemia, unspecified (principal); E66.9 Obesity, unspecified; J44.9 Chronic obstructive pulmonary disease, unspecified; Z99.81 Dependence on supplemental oxygen; E04.2 Nontoxic multinodular goiter | CPT/HCPCS: 96365; A4216; J1756; J7040; J7050 ==

== ENCOUNTER 2025-05-09 13:47 | Outpatient (RCR) | payer MEDICARE, MEDICAID, SELFPAY | END 2025-05-12 23:59 | disposition home or self-care (01) | LOC: SCTC 13:47 | PROVIDERS: PCP Family Medicine; Referring Provider Family Medicine; Visit Provider Internal Medicine Hematology & Oncology | DX: D50.9 Iron deficiency anemia, unspecified (principal); E66.9 Obesity, unspecified; J44.9 Chronic obstructive pulmonary disease, unspecified; E04.2 Nontoxic multinodular goiter | CPT/HCPCS: 96365; J1756; J7050; A9270 ==

== ENCOUNTER → 2025-05-20 | Outpatient (CLI) | payer MEDICARE, MEDICAID, SELFPAY ==
[2025-05-20 10:38] LABS: Basophils # (Auto) 0.0 Thou/mm3 (0.0-0.2); Basophils % (Auto) 0 % (0-2.5); Eosinophils # (Auto) 0.1 Thou/mm3 (0.0-0.5); Eosinophils % (Auto) 1 % (0-10); Hematocrit 36.6 % (36.0-46.0); Hemoglobin 11.3 g/dL (12.0-16.0); Immature Granulocytes Auto 0.03 Thou/mm3 (0.00-0.00); Immature Reticulocyte Fraction 19.8 % (3.0-15.9); Lymphocytes # (Auto) 1.6 Thou/mm3 (1.0-4.8); Lymphocytes % (Auto) 22 % (10-50); Mean Corpuscular HGB Conc 30.9 g/dl (31.0-37.0); Mean Corpuscular Hemoglobin 27.0 pg (25.0-35.0); Mean Corpuscular Volume 87 fL (80-100); Monocytes # (Auto) 0.8 Thou/mm3 (0.0-0.8); Monocytes % (Auto) 10 % (0-12); Neutrophils # (Auto) 5.1 Thou/mm3 (1.8-7.7); Neutrophils % (Auto) 67 % (37-80); Nucleated Red Blood Cell # 0.00 Thou/mm3 (0.00-0.00); Nucleated Red Blood Cell % 0 /100 WBC (0); Platelet Count 202 Thou/mm3 (140-440); RDW Standard Deviation 59.6 fL (36.4-46.3); Red Blood Count 4.19 Miln/mm3 (4.00-5.20); Reticulocyte % (Auto) 2.1 % (0.5-1.5); Reticulocyte Absolute Auto 86.7 Biln/L (25.0-75.0); Reticulocyte Hgb Content 32.0 pg (28.0-35.0); White Blood Count 7.6 Thou/mm3 (3.6-11.0)
[2025-05-20 10:50] LABS: Folate 8.58 ng/mL (>5.38); Vitamin B12 340 pg/mL (211-911)
[2025-05-20 10:51] LABS: Alanine Aminotransferase 18 U/L (10-49); Albumin, Serum 4.7 gm/dL (3.4-4.8); Albumin/Globulin Ratio 2.6 (1.2-2.2); Alkaline Phosphatase 80 U/L (46-116); Anion Gap 10 (7-16); Aspartate Amino Transferase 14 U/L (0-34); BUN/Creatinine Ratio 21 Ratio (12-20); Bilirubin,Total 0.3 mg/dL (0.3-1.2); Blood Urea Nitrogen 23 mg/dL (9-23); Calcium 10.2 mg/dL (8.3-10.6); Calcium (Corrected) 10.2 mg/dL (8.5-10.1); Carbon Dioxide 29.8 mMol/L (20.0-31.0); Chloride 100 mMol/L (98-107); Creatinine (Component) 1.1 mg/dL (0.6-1.3); Globulin 1.8 gm/dL (2.3-3.5); Glucose 94 mg/dL (74-106); Osmolality,Calculated 283 (275-295); Potassium 4.5 mMol/L (3.4-5.1); Sodium 140 mMol/L (136-145); Total Protein 6.5 gm/dL (5.7-8.2); eGFR 58 See Note
[2025-05-20 11:38] LABS: Iron 57 mcg/dL (50-170); Percent Iron Saturation 16 % (20-55); Total Iron Binding Capacity 338 mcg/dL (250-425); Unsaturated Iron Binding 281 (225-295)
[2025-05-20 11:55] LABS: Ferritin 82 ng/mL (7.3-270.7)
== END | disposition home or self-care (01) ==
LOC: SCTO 09:26
PROVIDERS: PCP Family Medicine; Referring Provider Nurse Practitioner Family; Visit Provider Nurse Practitioner Family
DX: D50.9 Iron deficiency anemia, unspecified (principal)
CPT/HCPCS: 36415; 80053; 82607; 82728; 82746; 83540; 83550; 85025; 85046

== ENCOUNTER 2025-05-21 10:06 | Outpatient (RCR) | payer MEDICARE, MEDICAID, SELFPAY | END 2025-06-11 23:59 | disposition home or self-care (01) | LOC: SCTC 10:06 | PROVIDERS: PCP Family Medicine; Referring Provider Family Medicine; Visit Provider Internal Medicine Hematology & Oncology | DX: D50.9 Iron deficiency anemia, unspecified (principal); J44.9 Chronic obstructive pulmonary disease, unspecified; E04.1 Nontoxic single thyroid nodule; Z87.891 Personal history of nicotine dependence | CPT/HCPCS: 99212; G0463 ==

== ENCOUNTER → 2025-05-31 | Outpatient (CLI) | payer MEDICARE, MEDICAID, SELFPAY ==
--- NOTE | 2025-05-31 08:58 | XR_ITS ---
Examination:Right hip AP, lateral, AP pelvis 3 views Technique: Hip AP lateral, AP pelvis, 3 views Exam date and time:May 31, 2025 0859 hours INDICATIONS: Patient fell 3 weeks ago with injury of the right hip, right hip pain. FINDINGS: No right hip fracture or dislocation Left hip bones of the pelvis intact IMPRESSION: No acute hip or pelvic fracture.
--- NOTE | 2025-05-31 08:58 | XR_ITS ---
Examination: Lumbar spine, 5 views Technique: Lumbar spine AP, lateral, coned lateral lower lumbar spine, bilateral obliques 5 views Exam date and time: May 31, 2025 0859 hours INDICATIONS: Patient fell 3 weeks ago with injury to the lower back, lower back pain. FINDINGS: Severe osteopenia Chronic osteoporotic compression T12 No acute lumbar fracture Status post intertransverse fusion with laminectomies L4-S1 IMPRESSION: No acute lumbar fracture
== END | disposition home or self-care (01) ==
PROVIDERS: PCP Registered Nurse; Referring Provider Registered Nurse; Visit Provider Registered Nurse
DX: S39.92XA Unspecified injury of lower back, initial encounter (principal); S79.911A Unspecified injury of right hip, initial encounter; W19.XXXA Unspecified fall, initial encounter
CPT/HCPCS: 72110; 73502

== ENCOUNTER 2025-06-26 13:33 | Outpatient (RCR) | payer MEDICARE, MEDICAID, SELFPAY | END 2025-07-12 23:59 | disposition home or self-care (01) | LOC: SCTC 13:33 | PROVIDERS: PCP Registered Nurse; Referring Provider Registered Nurse; Visit Provider Internal Medicine Hematology & Oncology | DX: D50.9 Iron deficiency anemia, unspecified (principal); J44.9 Chronic obstructive pulmonary disease, unspecified; Z99.81 Dependence on supplemental oxygen; E04.2 Nontoxic multinodular goiter | CPT/HCPCS: 96365; J1756; J3490; J7040; A9270 ==

== ENCOUNTER → 2025-07-15 | Outpatient (CLI) | payer MEDICARE, MEDICAID, SELFPAY ==
--- NOTE | 2025-07-15 13:30 | XR_ITS ---
Examination: MRI right wrist without contrast Date and time of exam: July 15, 2025, 1452 hours INDICATIONS: Wrist pain and swelling after a fall May 2025, clinical diagnosis of volar ganglion cyst Technique: Multiple MRI axial and sagittal sections right wrist Sagittal T2-weighted images, TR 3500, TE 118 T1 weighted transverse sections, TR 688 T8.5, T2-weighted sagittal sections T1 weighted sagittal sections TR 621, TE 30 T2 axial sections, TR 4, 190, TE 84. Findings: Marrow edema distal radius through the ulnar styloid region consistent with subacute nondisplaced fracture Tear of the triangular fibrocartilage coronal image 17 Carpal bones intact Fluid in the intercarpal joints and radiocarpal joint Flexor tendons intact Normal median nerve Extensor tendons intact No ganglion cyst IMPRESSION: Subacute healing fracture, nondisplaced distal radius through the radial styloid Small tear of the triangular fibrocartilage
== END | disposition home or self-care (01) ==
LOC: SMRI 12:58
PROVIDERS: PCP Family Medicine; Referring Provider Orthopaedic Surgery Orthopaedic Trauma; Visit Provider Orthopaedic Surgery Orthopaedic Trauma
DX: S63.501A Unspecified sprain of right wrist, initial encounter (principal); S52.91XA Unspecified fracture of right forearm, initial encounter for closed fracture; W19.XXXA Unspecified fall, initial encounter
CPT/HCPCS: 73221

== ENCOUNTER 2025-07-28 06:31 | Emergency (ER) | payer OTHER, MEDICAID, SELFPAY ==
[2025-07-28 06:39] VITALS: PULSE 85; RESP 20; O2SAT 94; BMI 41.8
[2025-07-28 06:43] VITALS: BP 116/72; PULSE 81; RESP 18; TEMP 36.6; O2SAT 96
--- NOTE | 2025-07-28 06:43 | XR_ITS ---
Examination: CT lumbar spine, without contrast. 2-D sagittal reconstructions. 2-D coronal reconstructions. 3-D reconstructions. Date and time of exam: July 28, 2025, 0749 hours, comparison July 02, 2024 INDICATIONS: Patient fell 4 days ago with injury to the lower back, lower back pain, history acute compression fracture T12 on CT lumbar spine July 02, 2024 CTDI: vol (mGy): 63.6 DLP: (mGycm): 2049 Technique: Multiple 1.25 mm axial sections of the lumbar spine without intravenous contrast have been obtained. 2-D sagittal and coronal reconstructions have been obtained. 3-D reconstructions have been obtained. Low dose protocols were performed. One or more of the following dose reduction techniques were used; automated exposure control, adjustment of the mA and/or KV according to patient size, use of iterative reconstruction technique. Findings: Moderate chronic compression T12, retropulsion posterior superior margin of this vertebral body 1.5 mm No acute lumbar vertebral body compression fracture Lumbar pedicles, laminae, transverse and posterior spinous processes intact Stable small focal area of sclerosis in the right iliac bone, 10 mm No spondylolisthesis L5-S1 no disc protrusion L4-L5 2 mm left foraminal disc bulge L3-L4 severe overall spinal stenosis, axial image 74, 4 mm central lumbar disc bulge, prominent facet arthropathy and thickening of ligamentum flavum circumferentially narrowing the thecal sac with mild left L3 ganglionic compression L2-L3 no disc protrusion L1-L2 no disc protrusion Axial image 29 demonstrates 7 mm fat-containing mass upper pole left kidney Soft tissue density in the subcutaneous fatty tissue posterior to L3-L4, sagittal image 51 which may represent soft tissue contusion IMPRESSION: No acute lumbar fracture L3-L4 severe overall spinal stenosis, including 4 mm central lumbar disc bulge, prominent facet arthropathy and thickening of ligamentum flavum circumferentially narrowing the thecal sac with mild left L3 ganglionic compression As clinically warranted, MRI lumbar spine without contrast follow-up would best assess full extent of acquired soft tissue spinal stenosis Suspicious for mild soft tissue contusion in the subcutaneous fatty tissue posterior to L3, L4 Recommend renal sonography to confirm 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
--- NOTE | 2025-07-28 06:47 | PD.EDFALL ---
ED Fall Injury RME/HPI General Chief Complaint: Fall Stated Complaint: FALL Time Seen by Provider: 07/28/25 06:41 Arrival date/time: 07/28/25 06:31 Related Data Home Medications ?Medication ?Instructions ?Recorded ?Confirmed alprazolam 1 mg tablet 0.5 - 1 mg PO QDAY PRN Anxiety 12/03/21 07/02/24 nifedipine 60 mg tablet,extended 60 mg PO QDAY 12/03/21 07/02/24 release 24 hr pregabalin 100 mg capsule 100 mg PO TID 12/03/21 07/02/24 tizanidine 4 mg tablet 4 mg PO BID 12/03/21 07/02/24 albuterol sulfate 90 mcg/actuation 2 puff inhalation TID 01/07/23 07/02/24 aerosol inhaler duloxetine 60 mg capsule,delayed 60 mg PO BID 01/07/23 07/02/24 release lisinopril 40 mg tablet (Zestril) 40 mg PO QDAY 01/07/23 07/02/24 buspirone 30 mg tablet 30 mg PO BID 01/29/23 07/02/24 montelukast 10 mg tablet 10 mg PO HS 01/29/23 07/02/24 oxybutynin chloride 5 mg tablet 5 mg PO BID 01/29/23 07/02/24 rosuvastatin 20 mg tablet 20 mg PO QDAY 01/29/23 07/02/24 trazodone 100 mg tablet 50 mg PO HS PRN Insomnia 01/29/23 07/02/24 hydrochlorothiazide 12.5 mg tablet 12.5 mg PO QDAY 09/27/23 07/02/24 omeprazole 40 mg capsule,delayed 40 mg PO QDAY 09/27/23 07/02/24 release Previous Rx's ?Medication ?Instructions ?Recorded ipratropium 0.5 mg-albuterol 3 mg 3 ml inhalation QID PRN shortness 02/01/23 (2.5 mg base)/3 mL nebulization of breath or wheezing #180 mL soln hydrocodone 5 mg-acetaminophen 325 1 tab PO Q8H PRN pain #7 tabs 07/05/24 mg tablet acetaminophen 500 mg tablet 1,000 mg (2 x 500 mg) PO Q6H PRN 08/26/24 (Tylenol Extra Strength) pain #30 tabs ibuprofen 600 mg tablet 600 mg PO Q6H PRN pain #30 tabs 08/26/24 cefdinir 300 mg capsule 300 mg PO BID #14 caps 01/22/25 prednisone 50 mg tablet 50 mg PO QDAY #3 tabs 01/22/25 hydrocodone 5 mg-acetaminophen 325 2 tab PO Q8H PRN pain #20 tabs 07/28/25 mg tablet Allergies Allergy/AdvReac Type Severity Reaction Status Date / Time No Known Allergies Allergy Verified 07/28/25 06:47 Course Quality Measures none Orders Category Date Time Status CT lumbar spine wo con Stat Exams 07/28/25 06:43 Completed HYDROmorphone INJ [Dilaudid Inj] Med 07/28/25 06:41 Discontinued 1 mg IM X1 ONE Vital Signs Vital signs: Vital Signs Temperature 97.8 F 07/28/25 06:43 Pulse Rate 81 07/28/25 06:43 Respiratory Rate 18 07/28/25 06:43 Blood Pressure 116/72 07/28/25 06:43 Pulse Oximetry (%) 96 07/28/25 06:43 Oxygen Delivery Method Nasal Cannula 07/28/25 06:43 Oxygen Flow Rate 3 07/28/25 06:43 Fall MDM Narrative MDM Narrative:: This section includes all my notes and documentations, including HPI, PE, and ED course. Hardeep Head MD HPI: 59-year-old female here after falling the day before yesterday. Slipped and landed on her lower back. Reports low back pain. No head injury or loss of consciousness. No other injury. No other complaints. ROS: All negative except as documented in HPI. Physical Exam: General:? Alert and oriented.? In obvious pain. Eyes:? Conjunctivae and lids clear.? EOMI.? PERRL. ENT:? No signs of head trauma. Neck:? Supple.? No tenderness. Heart:? RRR. Lungs:? No respiratory distress.? Good air movement.? No rhonchi, wheezing, rales.? Chest:? No tenderness. Abdomen:? Soft and nontender.? Normal bowel sounds.? No distension.? No rebound or guarding.? Back: Equivocal lumbar spinal tenderness.? Skin:? Warm and dry.? Neuro:? Alert and oriented X 3.? Cranial Nerves II-XII grossly intact.? No peripheral motor deficits. Musculoskeletal:? All major joints and bones are not tender with no limited ROM. I reviewed EMS notes. I reviewed all diagnostic test results: My review of the lumbar CT report is: No acute lumbar fracture. L3-L4 severe overall spinal stenosis. At this point, diagnoses include: Contusion of the lower back Lumbar spinal stenosis Treatment here included: Dilaudid 2 mg IM Significant improvement noted. Recommended supportive care and more outpatient workup. Based on my best medical judgment, made decision no further evaluation or treatment indicated at this time. Patient understands and agrees to the discharge instructions customized and printed, see below. Discharge Instructions from Dr. Head: --After evaluation, you sustained back contusion. See attached handout. --You also have severe L3-L4 spinal stenosis. Pinched nerve can cause severe pain. --This condition is difficult because normal pain medications don?t work very well on nerve pain. --Despite the pain, try to resume your normal chores and activities.? Because inactivity is terrible for this condition.? And activity won?t make your condition worse.? Use a cane of stick to help stand and walk.? --Use Ibuprofen and [place] and lidocaine patches as needed.? Don't expect the pain to go away completely, hoping to take the edge off.?? --When resting and sleeping, try position (with your knees to your chest and bending forward).? This can take some pressure off the nerve and help your pain. --Apply ice for 20 minutes every 2-3 hours today and tomorrow. --See a private doctor (outside the ER) on 07/29/2025 for further care. Ask to help you get more care not available here in the ER.? Such as MRI imaging, physical therapy, and referrals to see specialists.? Some choose to have surgery for this condition. But you need to have MRI imaging to confirm the diagnosis and assess the severity to get the best treatments. --Seek immediate medical care with paralysis in your foot, losing control of your bladder or bowels, saddle numbness (anal numbness), or with any concerns.?? Hardeep Head MD Patient data External records reviewed:: [facility] previous records and EMS form Clinical information provided by:: patient Social determinants that could affect healthcare access:: none Patient has the following chronic illnesses:: hypertension, hyperlipidemia, COPD (3 L O2 at home), chronic back pain How is presenting disease/condition affected by chronic disease/condition?: exacerbated by Evaluation data The following diagnostics were reviewed and interpreted by me:: radiology exam(s) Lab and/or radiology exams considered but not ordered:: none Interpretation Summary: I reviewed all diagnostic test results: My review of the lumbar CT report is: No acute lumbar fracture. L3-L4 severe overall spinal stenosis. Medications / Prescriptions Medications or Prescriptions considered but not ordered:: none Medication administrations:: Medication Administration History Discontinued Medications Hydromorphone HCl (Hydromorphone Inj 2 Mg/Ml Vial) 1 mg IM X1 ONE Stop: 07/28/25 06:42 Last Admin: 07/28/25 06:49 Dose: 1 mg Documented By: DENIZ Hydromorphone 2 mg IM Consultations Consultation(s) initiated? (list below): No Diagnosis Fall Differential Diagnosis: other (Lumbar strain, vertebral fracture, and sacral contusion.) Most likely diagnosis given after review of the tests above:: Contusion of the lower back Lumbar spinal stenosis Admission Indicated Admission indicated?: not indicated Explain why admission is indicated or not indicated:: With significant improvement and no condition needing emergent intervention, there was no indication for admission. Admission Request Was there a request for admission?: No Disposition Plan Disposition Plan: Discharge Discharge Attestation Discharge Attestation: The patient and all family members were given an opportunity to ask questions and understood the discharge instructions. Discharge instructions specifically effects, indications for sooner follow up or return to the emergency department, and the expected course of current diagnosis. Patient condition: Stable Discharge Plan Plan Patient Disposition: HOME (Self Care) Prescriptions/Referrals Prescriptions/Med Rec: New hydrocodone-acetaminophen 5-325 mg tablet 2 tab PO Q8H MDD 6 PRN (Reason: pain) Qty: 20 0RF No Action alprazolam 1 mg tablet 0.5 - 1 mg PO QDAY PRN (Reason: Anxiety) Patient Comments: TAKE 1/2-1 TABLET BY MOUTH EVERY DAY NEEDED tizanidine 4 mg tablet 4 mg PO BID nifedipine 60 mg tablet extended release 24 hr 60 mg PO QDAY pregabalin 100 mg capsule 100 mg PO TID Patient Comments: TAKE 1 CAPSULE BY MOUTH THREE TIMES A DAY trazodone 100 mg tablet 50 mg PO HS PRN (Reason: Insomnia) Rx Instructions: 50mg at bedtime as needed buspirone 30 mg tablet 30 mg PO BID montelukast 10 mg tablet 10 mg PO HS oxybutynin chloride 5 mg tablet 5 mg PO BID rosuvastatin 20 mg tablet 20 mg PO QDAY ipratropium-albuterol 0.5 mg-3 mg(2.5 mg base)/3 mL solution for nebulization 3 ml inhalation QID PRN (Reason: shortness of breath or wheezing) Qty: 180 0RF hydrocodone-acetaminophen 5-325 mg tablet 1 tab PO Q8H MDD 3 tab PRN (Reason: pain) Qty: 7 0RF albuterol sulfate 90 mcg/actuation HFA aerosol inhaler 2 puff INHALATION TID lisinopril [Zestril] 40 mg tablet 40 mg PO QDAY duloxetine 60 mg capsule,delayed release(DR/EC) 60 mg PO BID omeprazole 40 mg Capsule,Delayed Release(Dr/Ec) 40 mg PO QDAY Rx Instructions: 30 minutes before morning meal hydrochlorothiazide 12.5 mg Tablet 12.5 mg PO QDAY ibuprofen 600 mg tablet 600 mg PO Q6H PRN (Reason: pain) Qty: 30 0RF acetaminophen [Tylenol Extra Strength] 500 mg tablet 1,000 mg PO Q6H PRN (Reason: pain) Qty: 30 0RF prednisone 50 mg tablet 50 mg PO QDAY Qty: 3 0RF cefdinir 300 mg capsule 300 mg PO BID Qty: 14 0RF Referrals: Fidelina Vaughn MD [Primary Care Provider, Family Practice] - In 1 week Problem List Clinical Impression: Contusion of lower back, Lumbar spinal stenosis Patient/Caregiver Discharge Instructions Discharge Activity: activity as tolerated Education Materials: ED Back Contusion, ED Sciatica Additional Instructions: Discharge Instructions from Dr. Head: --After evaluation, you sustained back contusion. See attached handout. --You also have severe L3-L4 spinal stenosis. Pinched nerve can cause severe pain. --This condition is difficult because normal pain medications don?t work very well on nerve pain. --Despite the pain, try to resume your normal chores and activities.? Because inactivity is terrible for this condition.? And activity won?t make your condition worse.? Use a cane of stick to help stand and walk.? --Use Ibuprofen and [place] and lidocaine patches as needed.? Don't expect the pain to go away completely, hoping to take the edge off.?? --When resting and sleeping, try position (with your knees to your chest and bending forward).? This can take some pressure off the nerve and help your pain. --Apply ice for 20 minutes every 2-3 hours today and tomorrow. --See a private doctor (outside the ER) on 07/29/2025 for further care. Ask to help you get more care not available here in the ER.? Such as MRI imaging, physical therapy, and referrals to see specialists.? Some choose to have surgery for this condition. But you need to have MRI imaging to confirm the diagnosis and assess the severity to get the best treatments. --Seek immediate medical care with paralysis in your foot, losing control of your bladder or bowels, saddle numbness (anal numbness), or with any concerns.?? Print Language: Ukrainian Stand Alone Forms: [employer] Award Info., Patient Portal Info Letter
[2025-07-28] MEDS: HYDROmorphone INJ 2 MG/ML VIAL 1 MG IM (06:49)
[2025-07-28 09:05] VITALS: BP 128/88; PULSE 74; RESP 16; TEMP 36.7; O2SAT 99
== END 2025-07-28 09:06 | disposition home or self-care (01) ==
PROVIDERS: Emergency Provider Emergency Medicine; PCP Family Medicine
DX: S30.0XXA Contusion of lower back and pelvis, initial encounter (principal); M48.061 Spinal stenosis, lumbar region without neurogenic claudication; W01.0XXA Fall on same level from slipping, tripping and stumbling without subsequent striking against object, initial encounter
CPT/HCPCS: 72131; 96372; 99283; J1171

== ENCOUNTER → 2025-08-15 | Outpatient (CLI) | payer MEDICARE, MEDICAID, SELFPAY ==
[2025-08-15 13:12] LABS: Basophils # (Auto) 0.1 Thou/mm3 (0.0-0.2); Basophils % (Auto) 1 % (0-2.5); Eosinophils # (Auto) 0.2 Thou/mm3 (0.0-0.5); Eosinophils % (Auto) 2 % (0-10); Hematocrit 36.9 % (36.0-46.0); Hemoglobin 11.7 g/dL (12.0-16.0); Immature Granulocytes Auto 0.06 Thou/mm3 (0.00-0.00); Lymphocytes # (Auto) 2.7 Thou/mm3 (1.0-4.8); Lymphocytes % (Auto) 28 % (10-50); Mean Corpuscular HGB Conc 31.7 g/dl (31.0-37.0); Mean Corpuscular Hemoglobin 28.6 pg (25.0-35.0); Mean Corpuscular Volume 90 fL (80-100); Monocytes # (Auto) 1.0 Thou/mm3 (0.0-0.8); Monocytes % (Auto) 11 % (0-12); Neutrophils # (Auto) 5.7 Thou/mm3 (1.8-7.7); Neutrophils % (Auto) 59 % (37-80); Nucleated Red Blood Cell # 0.00 Thou/mm3 (0.00-0.00); Nucleated Red Blood Cell % 0 /100 WBC (0); Platelet Count 235 Thou/mm3 (140-440); RDW Standard Deviation 47.6 fL (36.4-46.3); Red Blood Count 4.09 Miln/mm3 (4.00-5.20); White Blood Count 9.7 Thou/mm3 (3.6-11.0)
[2025-08-15 13:19] LABS: Glucose Estimated Average 128 mg/dL (80-131); Hemoglobin A1C 6.1 % Hgb (4.8-6.0)
[2025-08-15 13:22] LABS: Alanine Aminotransferase 18 U/L (10-49); Albumin, Serum 4.6 gm/dL (3.4-4.8); Albumin/Globulin Ratio 2.1 (1.2-2.2); Alkaline Phosphatase 97 U/L (46-116); Anion Gap 11 (7-16); Aspartate Amino Transferase 18 U/L (0-34); BUN/Creatinine Ratio 16 Ratio (12-20); Bilirubin,Total 0.2 mg/dL (0.3-1.2); Blood Urea Nitrogen 18 mg/dL (9-23); Calcium 8.6 mg/dL (8.3-10.6); Calcium (Corrected) 8.6 mg/dL (8.5-10.1); Carbon Dioxide 23.9 mMol/L (20.0-31.0); Chloride 102 mMol/L (98-107); Creatinine (Component) 1.1 mg/dL (0.6-1.3); Globulin 2.2 gm/dL (2.3-3.5); Glucose 193 mg/dL (74-106); Osmolality,Calculated 280 (275-295); Potassium 3.7 mMol/L (3.4-5.1); Sodium 137 mMol/L (136-145); Total Protein 6.8 gm/dL (5.7-8.2); eGFR 57 See Note
== END | disposition home or self-care (01) ==
PROVIDERS: PCP Family Medicine; Referring Provider Family Medicine; Visit Provider Nurse Practitioner Family
DX: J44.1 Chronic obstructive pulmonary disease with (acute) exacerbation (principal); D50.9 Iron deficiency anemia, unspecified; M54.50 Low back pain, unspecified; G89.4 Chronic pain syndrome; E66.01 Morbid (severe) obesity due to excess calories; D64.9 Anemia, unspecified
CPT/HCPCS: 36415; 80053; 83036; 85025

== ENCOUNTER 2025-08-21 12:55 | Outpatient (RCR) | payer MEDICARE, MEDICAID, SELFPAY | END 2025-09-11 23:59 | disposition home or self-care (01) | LOC: SCTC 12:55 | PROVIDERS: PCP Registered Nurse; Referring Provider Registered Nurse; Visit Provider Nurse Practitioner Family | DX: D50.9 Iron deficiency anemia, unspecified (principal); J44.9 Chronic obstructive pulmonary disease, unspecified; E04.2 Nontoxic multinodular goiter | CPT/HCPCS: 99212; G0463 ==

== ENCOUNTER 2025-08-29 13:32 | Emergency (ER) | payer OTHER, MEDICAID, SELFPAY ==
[2025-08-29 13:46] VITALS: PULSE 90; O2SAT 97
[2025-08-29 14:03] VITALS: BP 116/79; PULSE 86; RESP 20; TEMP 36.9; O2SAT 96; BMI 45.0
--- NOTE | 2025-08-29 14:24 | XR_ITS ---
Examination: CT right knee, without contrast. 2-D sagittal reconstructions. 2-D coronal reconstructions. 3-D reconstructions. Date and time of exam: August 29, 2025, 1516 hours INDICATIONS: Patient fell today with injury to the knee, knee pain CTDI: vol (mGy): 12.8 DLP: (mGycm): 383 Technique: Multiple 1.25 mm axial sections of the right knee without contrast have been obtained. 2-D sagittal and coronal reconstructions have been obtained. 3-D reconstructions have been obtained. Low dose protocols were performed. One or more of the following dose reduction techniques were used; automated exposure control, adjustment of the mA and/or KV according to patient size, use of iterative reconstruction technique. Findings: Distal femur femoral condyles intact Patella intact with no patellar dislocation Moderate narrowing medial joint space Tibia fibula visualized intact Moderate knee effusion Prepatellar density consistent with hematoma IMPRESSION: No acute fracture Moderate knee effusion seen with internal derangement of the knee, consider elective MRI knee without contrast follow-up Hematoma measuring 16 mm in AP dimension anterior to the patella
--- NOTE | 2025-08-29 14:24 | XR_ITS ---
Examination: CT cervical spine without contrast 2-D sagittal reconstructions 2-D coronal reconstructions 3-D reconstructions. Exam date and time: August 29, 2025, 1512 hours INDICATIONS: Patient fell today with injury to the neck, neck pain CTDI:vol (mGy) 22.4 DLP: (mGycm) 565 Technique: Multiple 2 mm axial sections of the cervical spine have been obtained. The coronal and sagittal reconstructions have been obtained. 3-D reconstructions have been obtained. Low dose protocols were performed. One or more of the following dose reduction techniques were used; automated exposure control, adjustment of the mA and/or KV according to patient size, use of iterative reconstruction technique. Findings: Axial sections demonstrate intact base of the skull. Cervical fusion C4-C6 C1 exhibit satisfactory relationship to the odontoid. No acute cervical vertebral body fracture seen. Alignment posterior spinous processes satisfactory. Impression: No acute cervical fracture.
--- NOTE | 2025-08-29 14:24 | XR_ITS ---
Examination: Knee, right, 3 views Technique: Knee AP, lateral, oblique 3 views Date and time of exam: August 29, 2025, 1437 hours INDICATION: Patient fell today with injury to the knee, knee pain. FINDINGS: No fracture or dislocation Moderate bilateral tricompartment osteoarthritis IMPRESSION: Negative for fracture Prepatellar soft tissue prominence
--- NOTE | 2025-08-29 14:24 | XR_ITS ---
Examination: CT brain head without contrast. 2-D sagittal coronal reconstructions Date and time of exam: August 29, 2025, 1512 hours INDICATIONS: Ground-level fall today with injury to the head, head pain CTDI: vol (mGy): 62.6 DLP: (mGycm): 1261 Technique: Multiple CT axial sections of the brain have been obtained, 5 mm slice thickness. Contrast has not been administered. 2-D sagittal, coronal reconstructions have been obtained Low dose protocols were performed. One or more of the following dose reduction techniques were used; automated exposure control, adjustment of the mA and/or KV according to patient size, use of iterative reconstruction technique. Findings: No significant ventricular enlargement. Intra-axial or extra-axial hemorrhage density is not seen. No mass effect or midline shift Basal cisterns are not remarkable. Fourth ventricle is midline. Cranial vault intact. Impression: Negative for acute hemorrhage, mass effect or midline shift
[2025-08-29] MEDS: HYDROcodone/APAP 5/325 TABLET 1 TAB PO (14:33)
--- NOTE | 2025-08-29 16:20 | PD.EDLOWEX ---
Lower Extremity Injury RME/HPI General Chief Complaint: Fall Stated Complaint: FALL/RIGHT KNEE PAIN Time Seen by Provider: 08/29/25 14:15 Arrival date/time: 08/29/25 13:32 60-year-old female presents to the emergency department of complaint of right knee pain patient reports that she hit her head patient where she tripped and fell falling directly onto her knee and then hitting her head. Patient reports no loss conscious no vomiting patient does report some headache mild neck pain and right knee pain Limitations: no limitations Related Data Home Medications ?Medication ?Instructions ?Recorded ?Confirmed alprazolam 1 mg tablet 0.5 - 1 mg PO QDAY PRN Anxiety 12/03/21 07/02/24 nifedipine 60 mg tablet,extended 60 mg PO QDAY 12/03/21 07/02/24 release 24 hr pregabalin 100 mg capsule 100 mg PO TID 12/03/21 07/02/24 tizanidine 4 mg tablet 4 mg PO BID 12/03/21 07/02/24 albuterol sulfate 90 mcg/actuation 2 puff inhalation TID 01/07/23 07/02/24 aerosol inhaler duloxetine 60 mg capsule,delayed 60 mg PO BID 01/07/23 07/02/24 release lisinopril 40 mg tablet (Zestril) 40 mg PO QDAY 01/07/23 07/02/24 buspirone 30 mg tablet 30 mg PO BID 01/29/23 07/02/24 montelukast 10 mg tablet 10 mg PO HS 01/29/23 07/02/24 oxybutynin chloride 5 mg tablet 5 mg PO BID 01/29/23 07/02/24 rosuvastatin 20 mg tablet 20 mg PO QDAY 01/29/23 07/02/24 trazodone 100 mg tablet 50 mg PO HS PRN Insomnia 01/29/23 07/02/24 hydrochlorothiazide 12.5 mg tablet 12.5 mg PO QDAY 09/27/23 07/02/24 omeprazole 40 mg capsule,delayed 40 mg PO QDAY 09/27/23 07/02/24 release Previous Rx's ?Medication ?Instructions ?Recorded ipratropium 0.5 mg-albuterol 3 mg 3 ml inhalation QID PRN shortness 02/01/23 (2.5 mg base)/3 mL nebulization of breath or wheezing #180 mL soln hydrocodone 5 mg-acetaminophen 325 1 tab PO Q8H PRN pain #7 tabs 07/05/24 mg tablet acetaminophen 500 mg tablet 1,000 mg (2 x 500 mg) PO Q6H PRN 08/26/24 (Tylenol Extra Strength) pain #30 tabs ibuprofen 600 mg tablet 600 mg PO Q6H PRN pain #30 tabs 08/26/24 cefdinir 300 mg capsule 300 mg PO BID #14 caps 01/22/25 prednisone 50 mg tablet 50 mg PO QDAY #3 tabs 01/22/25 hydrocodone 5 mg-acetaminophen 325 2 tab PO Q8H PRN pain #20 tabs 07/28/25 mg tablet hydrocodone 5 mg-acetaminophen 325 1 tab PO BID PRN pain #10 tabs 08/29/25 mg tablet Allergies Allergy/AdvReac Type Severity Reaction Status Date / Time No Known Allergies Allergy Verified 08/29/25 13:52 Review of Systems Review of Systems Systems Reviewed: All systems reviewed, normal except as documented Constitutional Constitutional: Reports system reviewed and no additional complaints, except as documented, Denies fever(s) and Denies headache(s) Eyes Eyes: Reports system reviewed and no additional complaints, except as documented and Denies blurry vision ENT Ears, Nose, Mouth, and Throat: Reports system reviewed and no additional complaints, except as documented, Denies headache(s), Denies nasal congestion and Denies nasal discharge Cardiovascular Cardiovascular: Reports system reviewed and no additional complaints, except as documented, Denies chest pain and Denies dyspnea Respiratory Respiratory: Reports system reviewed and no additional complaints, except as documented, Denies chest congestion, Denies cough and Denies dyspnea Gastrointestinal Gastrointestinal: Reports system reviewed and no additional complaints, except as documented and Denies abdominal pain Musculoskeletal Musculoskeletal: Reports system reviewed and no additional complaints, except as documented, Reports arthralgias, Denies deformity, Denies numbness and Denies tingling Integumentary/Breasts Skin/Breast: Reports system reviewed and no additional complaints, except as documented and Denies rash Neurologic Neurologic: Reports system reviewed and no additional complaints, except as documented, Reports as per HPI, Denies headache(s), Denies numbness and Denies tingling Past Medical History Past Medical History NEUROLOGIC: Positive Head Trauma; Negative Neurological Disorders, Cerebrovascular Accident, Transient Ischemic Attacks (TIA), Dementia, Alzheimer's Disease, Parkinson's Disease, Brain Tumor, Meningitis, Seizures, Epilepsy, Multiple Sclerosis, Cerebral Palsy, Amyotrophic Lateral Sclerosis (ALS/Jenna Gehrig's), Guillain-Vicco Syndrome, Spina Bifida, Paralysis, Peripheral Neuropathy, Montes's Palsy, Subdural Hematoma, Migraine, Spinal Cord Injury or Traumatic Brain Injury CARDIAC: Positive Cardiac Disorders, Angina, Hypercholesterolemia, Edema and Hypertension; Negative Myocardial Infarction, Cardiac Arrhythmia, Atrial Fibrillation, Heart Murmur, Coronary Artery Disease, Atherosclerotic Heart Disease, Peripheral Vascular Disease, Aneurysm, Congestive Heart Failure, Congenital Heart Disease, Valvular Heart Disease, Rheumatic Fever, Cardiomyopathy, Pericarditis, Cellulitis, Deep Vein Thrombosis, Hypotension or Varicose Veins RESPIRATORY: Positive Chronic Obstructive Pulmonary Disease (COPD), Asthma, Bronchitis, Pneumonia and Sleep Apnea; Negative Emphysema, Pulmonary Fibrosis, Cystic Fibrosis, Tuberculosis, Pulmonary Embolism or Pulmonary Edema GASTROINTESTINAL: Positive Gastrointestinal Disorders, Hiatal Hernia, Hemorrhoids, Gastroesophageal Reflux Disease and Obesity; Negative Hepatitis, Cirrhosis, Pancreatitis, Celiac Disease, Gall Bladder Disease, Gastrointestinal Bleed, Esophageal Varices, Villegas's Esophagus, Colitis, Ulcerative Colitis, Diverticulitis, Diverticulosis, Ulcer, Colorectal Cancer, Irritable Bowel, Crohn's Disease or Obstructive Bowel GENITOURINARY: Negative Genitourinary Disorders, Renal Disease, Kidney Stones, Polycystic Kidney Disease, Neurogenic Bladder, Inguinal Hernia, Dialysis, Prostate Cancer or Benign Prostatic Hyperplasia REPRODUCTIVE: Positive Previous Pregnancies; Negative Breast Cancer, Endometriosis, Genital Herpes, Gonorrhea, Pelvic Inflammatory Disease, Syphilis, Testicular Cancer or Uterine Prolapse MUSCULOSKELETAL: Positive Musculoskeletal Disorders, Arthritis, Carpal Tunnel Syndrome, Fractures and Degenerative Joint Disease; Negative Muscular Dystrophy, Myasthenia Gravis, Marfan's Syndrome, Bone Cancer, Rheumatoid Arthritis, Osteoporosis, Degenerative Disk Disease, Gout, Scoliosis, Fibromyalgia, Osteomyelitis or Poliovirus ENT: Positive Cataracts and Head Trauma; Negative Glaucoma, Blind, Retinal Detachment, Macular Degeneration, Ear Infection, Deafness or Eye Prosthesis ENDOCRINE: Negative Endocrine Disorders, Diabetes Mellitus Type 1, Diabetes Mellitus Type 2, Hypoglycemia, [place]'s Syndrome, [place] [employer]'s Disease, Hyperthyroidism, Hypothyroidism, Parathyroid Disease, Pituitary Disease, Systemic Lupus Erythematosus, Syndrome of Inappropriate Antidiuretic Hormone (SIADH), Adrenal Disease or Graves' Disease HEMATOLOGIC: Positive Blood Disorders and Anemia; Negative Leukemia, Hemophilia, Thalassemia, Sickle Cell Disease or Clotting Problems PSYCHO/SOCIAL: Positive Depression and Anxiety; Negative Psychiatric Problems, Schizophrenia, Recreational Drug Use, Bipolar Disorder, Behavior Problems, Self-Mutilation, Attention Deficit Disorder, Attention Deficit Hyperactivity Disorder, Depression, Post Traumatic Stress Disorder or Eating Disorder OTHER HISTORY: Positive Hospitalization, Blood Transfusions, Chicken Pox, Measles and Mumps; Negative Autoimmune Disease, Down Syndrome, Autism, Developmental Delay, Falls, Blood Transfusion Reaction, Anesthesia Reactions, Organ Transplant, Chemotherapy, Radiation Therapy, Hyperbaric Therapy, MRSA, VRSA, Vancomycin-Resistant Enterococci, Human Immunodeficiency Virus (HIV), Rubella (Sami Measles), Pertussis, Clostridium Difficile, Cancer, Breast Cancer, Cervical Cancer, Colorectal Cancer, Lung Cancer, Ovarian Cancer, Prostate Cancer or Testicular Cancer Family History FAMILY HISTORY: Positive Family Respiratory Disorders, Family Cardiac Disorders and Family Surgery; Negative Family Psychiatric Problems, Family Gastrointestinal Problems, Family Cancer or Family Anesthesia Reaction Surgical History SURGICAL: Positive Tonsillectomy, Abdominal Surgery, Joint Replacement, Hysterectomy and Tubal Ligation; Negative Cardiac Surgery, Open Heart Surgery, Coronary Artery Bypass Graft, Valve Replacement, Vascular Surgery, Coronary Stent, Cardiac Catheterization, Pacemaker, Angiogram, Auto Implanted Cardiovert Defib, Carotid Endarterectomy, Endocrine Surgery, Thyroidectomy, Ear Surgery, Tympanostomy Tube, Eye Surgery, Nose Surgery (sinus surgery for deviated septum.), Oral Surgery, Adenoidectomy, Cochlear Implant, Corneal Transplant, Throat Surgery, Tracheostomy, Gastric Bypass Surgery, Gastrostomy, Bowel Surgery, Nephrectomy, Transurethral Resection, Amputation, Open Reduction Internal Fixation, Arthroscopy, Neurologic Surgery, Brain Shunt, Mastectomy, Lumpectomy, Section, Vasectomy or Organ Transplant Social History SMOKING STATUS: Never smoker SECOND HAND EXPOSURE: No SUBSTANCE USE: does not use ED Exam General Limitations: Present no limitations General appearance: Present alert and in no apparent distress Head Head exam: Present atraumatic, normocephalic and normal inspection Eye Eye exam: Present normal appearance, PERRL and EOMI ENT ENT exam: Present normal exam, normal oropharynx and mucous membranes moist Neck Neck exam: Present normal inspection, full ROM and trachea midline Chest Chest inspection: Present normal inspection and symmetric chest wall rise Respiratory Respiratory exam: Present normal lung sounds bilaterally Cardiovascular Cardiovascular exam: Present regular rate, normal rhythm and normal heart sounds Abdominal Exam Abdominal exam: Present soft and normal bowel sounds Extremities Exam Extremities exam: Present full ROM, tenderness, normal capillary refill and joint swelling (Right knee pain); Absent pedal edema or calf tenderness Back Exam Back exam: Present normal inspection and full ROM Neurological Exam Neurological exam: Present alert, oriented X3 and CN II-XII intact Psychiatric Psychiatric exam: Present normal affect and normal mood Skin Skin exam: Present warm, dry, intact and normal color Course Quality Measures none Orders Category Date Time Status CT cervical spine wo con Stat Exams 08/29/25 14:[address] head/brain wo con Stat Exams 08/29/25 14:[address] knee RT wo con Stat Exams 08/29/25 14:24 Completed XR knee RT 3V Stat Exams 08/29/25 14:24 Completed HYDROcodone*/APAP 5/325 [[employer] Mdl 5/325] Med 08/29/25 14:24 Discontinued 1 tab PO X1 ONE Vital Signs Vital signs: Vital Signs Temperature 98.4 F 08/29/25 14:03 Pulse Rate 86 08/29/25 14:03 Respiratory Rate 20 08/29/25 14:03 Blood Pressure 116/79 08/29/25 14:03 Pulse Oximetry (%) 96 08/29/25 14:03 Oxygen Delivery Method Nasal Cannula 08/29/25 14:03 Oxygen Flow Rate 3 08/29/25 14:03 O2 saturation 96% on nasal cannula Extremity Injury, Lower MDM Narrative MDM Narrative:: 60-year-old female presents to the emergency department of complaint of right knee pain patient reports that she hit her head patient where she tripped and fell falling directly onto her knee and then hitting her head. Patient reports no loss conscious no vomiting patient does report some headache mild neck pain and right knee pain On exam patient well-appearing does not appear ill or toxic distress Patient does have mild swelling of the right knee Patient appears to have small hematoma to the right side of her forehead Imaging obtained no acute emergent findings noted Patient discharged home in no distress to follow-up with primary care doctor in the next 24 to 48 hours and for any worsening symptoms to return to the ER immediately Patient data External records reviewed:: [facility] previous records Clinical information provided by:: patient Social determinants that could affect healthcare access:: none Patient has the following chronic illnesses:: See history How is presenting disease/condition affected by chronic disease/condition?: uneffected by Evaluation data The following diagnostics were reviewed and interpreted by me:: radiology exam(s) Lab and/or radiology exams considered but not ordered:: Radiology obtained Interpretation Summary: Reviewed by me Medications / Prescriptions Medications or Prescriptions considered but not ordered:: Given Medication administrations:: Medication Administration History Discontinued Medications Hydrocodone Bitart/Acetaminophen (Hydrocodone/Apap 5/325 Tablet) 1 tab PO X1 ONE Stop: 08/29/25 14:25 Last Admin: 08/29/25 14:33 Dose: 1 tab Documented By: OA Given Consultations Consultation(s) initiated? (list below): No Diagnosis Extremity Injury, Lower Differential Diagnosis: acute internal derangement of knee and other (Knee sprain, knee fracture) Most likely diagnosis given after review of the tests above:: Knee pain right, closed head injury Admission Indicated Admission indicated?: not indicated Admission Request Was there a request for admission?: No Disposition Plan Disposition Plan: Discharge Discharge Attestation Discharge Attestation: The patient and all family members were given an opportunity to ask questions and understood the discharge instructions. Discharge instructions specifically effects, indications for sooner follow up or return to the emergency department, and the expected course of current diagnosis. Patient condition: Stable Discharge Plan Plan Patient Disposition: HOME (Self Care) Discharge Disposition comment: Stable Prescriptions/Referrals Prescriptions/Med Rec: New hydrocodone-acetaminophen 5-325 mg tablet 1 tab PO BID MDD 10mg PRN (Reason: pain) Qty: 10 0RF No Action alprazolam 1 mg tablet 0.5 - 1 mg PO QDAY PRN (Reason: Anxiety) Patient Comments: TAKE 1/2-1 TABLET BY MOUTH EVERY DAY NEEDED tizanidine 4 mg tablet 4 mg PO BID nifedipine 60 mg tablet extended release 24 hr 60 mg PO QDAY pregabalin 100 mg capsule 100 mg PO TID Patient Comments: TAKE 1 CAPSULE BY MOUTH THREE TIMES A DAY trazodone 100 mg tablet 50 mg PO HS PRN (Reason: Insomnia) Rx Instructions: 50mg at bedtime as needed buspirone 30 mg tablet 30 mg PO BID montelukast 10 mg tablet 10 mg PO HS oxybutynin chloride 5 mg tablet 5 mg PO BID rosuvastatin 20 mg tablet 20 mg PO QDAY ipratropium-albuterol 0.5 mg-3 mg(2.5 mg base)/3 mL solution for nebulization 3 ml inhalation QID PRN (Reason: shortness of breath or wheezing) Qty: 180 0RF hydrocodone-acetaminophen 5-325 mg tablet 1 tab PO Q8H MDD 3 tab PRN (Reason: pain) Qty: 7 0RF hydrocodone-acetaminophen 5-325 mg tablet 2 tab PO Q8H MDD 6 PRN (Reason: pain) Qty: 20 0RF albuterol sulfate 90 mcg/actuation HFA aerosol inhaler 2 puff INHALATION TID lisinopril [Zestril] 40 mg tablet 40 mg PO QDAY duloxetine 60 mg capsule,delayed release(DR/EC) 60 mg PO BID omeprazole 40 mg Capsule,Delayed Release(Dr/Ec) 40 mg PO QDAY Rx Instructions: 30 minutes before morning meal hydrochlorothiazide 12.5 mg Tablet 12.5 mg PO QDAY ibuprofen 600 mg tablet 600 mg PO Q6H PRN (Reason: pain) Qty: 30 0RF acetaminophen [Tylenol Extra Strength] 500 mg tablet 1,000 mg PO Q6H PRN (Reason: pain) Qty: 30 0RF prednisone 50 mg tablet 50 mg PO QDAY Qty: 3 0RF cefdinir 300 mg capsule 300 mg PO BID Qty: 14 0RF Referrals: Fidelina Vaughn MD [Primary Care Provider, Family Practice] - In 1 week Problem List Clinical Impression: Contusion of knee, right, CHI (closed head injury) Patient/Caregiver Discharge Instructions Education Materials: After a Concussion Additional Instructions: Please follow up with your primary care doctor in the next 24-48hrs for any worsening symptoms return here immediately Print Language: Lao Stand Alone Forms: Rocio Award Info., Patient Portal Info Letter PA/ACCESS REP Supervising Physician PA/ACCESS REP Supervising Physician: Dr. Barger
== END 2025-08-29 16:59 | disposition home or self-care (01) ==
PROVIDERS: Emergency Provider Nurse Practitioner Primary Care; PCP Family Medicine
DX: S80.01XA Contusion of right knee, initial encounter (principal); S09.90XA Unspecified injury of head, initial encounter; S19.9XXA Unspecified injury of neck, initial encounter; W01.10XA Fall on same level from slipping, tripping and stumbling with subsequent striking against unspecified object, initial encounter
CPT/HCPCS: 70450; 72125; 73562; 73700; 99283; A9270

== ENCOUNTER 2025-09-09 08:33 | Emergency (ER) | payer OTHER, MEDICAID, SELFPAY ==
[2025-09-09 09:02] VITALS: BP 143/89; PULSE 105; RESP 17; TEMP 36.4; O2SAT 98; BMI 41.8
--- NOTE | 2025-09-09 09:05 | PD.EDRME ---
Rapid Medical Screening Exam RME Arrival date/time: 09/09/25 08:33 60-year-old female with no known medical history presents to the emergency room with a chief complaint of swelling, warmth, pus draining from the right knee. I have greeted and performed a focused initial assessment of this patient. A comprehensive ED assessment and evaluation of the patient, analysis of all test results, and completion of the medical decision making process will be conducted by additional ED providers. Chief Complaint: Extremity Injury, Lower Vital signs: Vital Signs Temperature 97.6 F 09/09/25 09:02 Pulse Rate 105 H 09/09/25 09:02 Respiratory Rate 17 09/09/25 09:02 Blood Pressure 143/89 H 09/09/25 09:02 Pulse Oximetry (%) 98 09/09/25 09:02 Oxygen Delivery Method Room Air 09/09/25 09:02 Vital signs reviewed by provider: Yes Exam: Tenderness swelling bruising to the patient's right knee GCS 15 Clinical Impression: Cellulitis/septic arthritis
[2025-09-09 09:21] LABS: Lactate (Lactic Acid) 1.6 mMol/L (0.4-2.0)
[2025-09-09 09:24] LABS: Basophils # (Auto) 0.1 Thou/mm3 (0.0-0.2); Basophils % (Auto) 0 % (0-2.5); Eosinophils # (Auto) 0.1 Thou/mm3 (0.0-0.5); Eosinophils % (Auto) 1 % (0-10); Hematocrit 41.9 % (36.0-46.0); Hemoglobin 13.4 g/dL (12.0-16.0); Immature Granulocytes Auto 0.08 Thou/mm3 (0.00-0.00); Lymphocytes # (Auto) 2.1 Thou/mm3 (1.0-4.8); Lymphocytes % (Auto) 18 % (10-50); Mean Corpuscular HGB Conc 32.0 g/dl (31.0-37.0); Mean Corpuscular Hemoglobin 28.7 pg (25.0-35.0); Mean Corpuscular Volume 90 fL (80-100); Monocytes # (Auto) 0.7 Thou/mm3 (0.0-0.8); Monocytes % (Auto) 6 % (0-12); Neutrophils # (Auto) 8.7 Thou/mm3 (1.8-7.7); Neutrophils % (Auto) 74 % (37-80); Nucleated Red Blood Cell # 0.00 Thou/mm3 (0.00-0.00); Nucleated Red Blood Cell % 0 /100 WBC (0); Platelet Count 235 Thou/mm3 (140-440); RDW Standard Deviation 50.6 fL (36.4-46.3); Red Blood Count 4.67 Miln/mm3 (4.00-5.20); White Blood Count 11.7 Thou/mm3 (3.6-11.0)
[2025-09-09 09:52] LABS: Alanine Aminotransferase 19 U/L (10-49); Albumin, Serum 4.7 gm/dL (3.4-4.8); Albumin/Globulin Ratio 1.9 (1.2-2.2); Alkaline Phosphatase 78 U/L (46-116); Anion Gap 9 (7-16); Aspartate Amino Transferase 24 U/L (0-34); BUN/Creatinine Ratio 17 Ratio (12-20); Bilirubin,Total 0.5 mg/dL (0.3-1.2); Blood Urea Nitrogen 19 mg/dL (9-23); Calcium 9.7 mg/dL (8.3-10.6); Calcium (Corrected) 9.7 mg/dL (8.5-10.1); Carbon Dioxide 28.6 mMol/L (20.0-31.0); Chloride 101 mMol/L (98-107); Creatinine (Component) 1.1 mg/dL (0.6-1.3); Estimated Creatinine Clearance 74.8 mL/min (>60); Globulin 2.5 gm/dL (2.3-3.5); Glucose 110 mg/dL (74-106); Osmolality,Calculated 280 (275-295); Potassium 4.2 mMol/L (3.4-5.1); Procalcitonin < 0.04 ng/ml (0.0-0.49); Sodium 139 mMol/L (136-145); Total Protein 7.2 gm/dL (5.7-8.2); eGFR 57 See Note
[2025-09-09 11:14] VITALS: BP 131/87; PULSE 95; RESP 18; TEMP 36.6; O2SAT 95
[2025-09-09 12:01] VITALS: PULSE 90; RESP 18; RESP 90; O2SAT 94
[2025-09-09] MEDS: SODIUM CHLORIDE 0.9% 1000 ML 1,000 ML 999 ML IV (12:03)
[2025-09-09] MEDS: ONDANSETRON INJ 2 MG/ML INJ 2 ML 4 MG IVP (12:09)
[2025-09-09] MEDS: MORPHINE SULF INJ 4 MG/ML VIAL IVP (12:11)
[2025-09-09] MEDS: cefTRIAXone 2 GM in SODIUM CHLORIDE 0.9% (Popper) 50 ML IV (12:13)
[2025-09-09] MEDS: KETOROLAC INJ 30 MG/ML VIAL 15 MG IVP (12:13)
[2025-09-09 13:41] LABS: Collection Type, Urine Clean Catch
[2025-09-09 13:46] VITALS: BP 141/80; PULSE 90; RESP 31; O2SAT 96
[2025-09-09 13:46] LABS: Bilirubin,Urine Negative (Negative); Blood,Urine Negative (Negative); Clarity,Urine Clear (Clear/Hazy); Color,Urine Lt-Yellow (Lt Yel-Yel); Glucose, Urine Negative (Negative); Ketones,Urine Negative (Negative); Leukocyte Esterase,Urine Negative (Negative); Nitrite,Urine Negative (Negative); PH,Urine 6.0 (5.0-7.0); Protein,Urine Negative (Neg - Trace); RBC,Urine < 1 /hpf (0-3); Specific Gravity,Urine 1.007 (1.001-1.035); Squamous Epithelial Cell,Urine 1 /hpf (0-5); Urobilinogen,Urine Negative mg/dL (0.0-1.0); WBC,Urine 1 /hpf (0-5)
--- NOTE | 2025-09-27 06:53 | PD.EDLOWEX ---
Lower Extremity Injury RME/HPI General Chief Complaint: Extremity Injury, Lower Stated Complaint: INFECTED R) KNEE Time Seen by Provider: 09/09/25 09:30 Source: patient Arrival date/time: 09/09/25 08:33 Mode of arrival: ambulatory Limitations: no limitations RME / HPI complaint: knee injury Onset (ago): day(s) Injury: Right: knee Type of Injury: blunt Place: home Severity: moderate Severity scale (1-10): 6 Relieving factors: nothing Exacerbating factors: weight bearing and movement Context: direct blow Associated symptoms: swelling Other symptoms: none RME / HPI Narrative: 09/09/25 08:33 60-year-old female with no known medical history presents to the emergency room with a chief complaint of swelling, warmth, pus draining from the right knee. I have greeted and performed a focused initial assessment of this patient. A comprehensive ED assessment and evaluation of the patient, analysis of all test results, and completion of the medical decision making process will be conducted by additional ED providers. Exam: Tenderness swelling bruising to the patient's right knee GCS 15 Related Data Home Medications ?Medication ?Instructions ?Recorded ?Confirmed alprazolam 1 mg tablet 0.5 - 1 mg PO QDAY PRN Anxiety 12/03/21 07/02/24 nifedipine 60 mg tablet,extended 60 mg PO QDAY 12/03/21 07/02/24 release 24 hr pregabalin 100 mg capsule 100 mg PO TID 12/03/21 07/02/24 tizanidine 4 mg tablet 4 mg PO BID 12/03/21 07/02/24 albuterol sulfate 90 mcg/actuation 2 puff inhalation TID 01/07/23 07/02/24 aerosol inhaler duloxetine 60 mg capsule,delayed 60 mg PO BID 01/07/23 07/02/24 release lisinopril 40 mg tablet (Zestril) 40 mg PO QDAY 01/07/23 07/02/24 buspirone 30 mg tablet 30 mg PO BID 01/29/23 07/02/24 montelukast 10 mg tablet 10 mg PO HS 01/29/23 07/02/24 oxybutynin chloride 5 mg tablet 5 mg PO BID 01/29/23 07/02/24 rosuvastatin 20 mg tablet 20 mg PO QDAY 01/29/23 07/02/24 trazodone 100 mg tablet 50 mg PO HS PRN Insomnia 01/29/23 07/02/24 hydrochlorothiazide 12.5 mg tablet 12.5 mg PO QDAY 09/27/23 07/02/24 omeprazole 40 mg capsule,delayed 40 mg PO QDAY 09/27/23 07/02/24 release Previous Rx's ?Medication ?Instructions ?Recorded ipratropium 0.5 mg-albuterol 3 mg 3 ml inhalation QID PRN shortness 02/01/23 (2.5 mg base)/3 mL nebulization of breath or wheezing #180 mL soln hydrocodone 5 mg-acetaminophen 325 1 tab PO Q8H PRN pain #7 tabs 07/05/24 mg tablet acetaminophen 500 mg tablet 1,000 mg (2 x 500 mg) PO Q6H PRN 08/26/24 (Tylenol Extra Strength) pain #30 tabs ibuprofen 600 mg tablet 600 mg PO Q6H PRN pain #30 tabs 08/26/24 cefdinir 300 mg capsule 300 mg PO BID #14 caps 01/22/25 prednisone 50 mg tablet 50 mg PO QDAY #3 tabs 01/22/25 hydrocodone 5 mg-acetaminophen 325 2 tab PO Q8H PRN pain #20 tabs 07/28/25 mg tablet hydrocodone 5 mg-acetaminophen 325 1 tab PO BID PRN pain #10 tabs 08/29/25 mg tablet tramadol 50 mg tablet 50 mg PO TID PRN pain #30 tabs 09/09/25 Allergies Allergy/AdvReac Type Severity Reaction Status Date / Time No Known Allergies Allergy Verified 09/09/25 08:36 ED Exam General Limitations: Present no limitations Course Quality Measures none Orders Category Date Time Status Grocery Checker NOW Care 09/09/25 11:35 Completed Continuous Pulse Oximetry NOW Care 09/09/25 11:35 Completed Insert IV NOW Care 09/09/25 11:35 Completed Blood Culture (Lab) Stat Lab 09/09/25 09:11 Completed CBC Stat Lab 09/09/25 09:08 Completed CMP [Comprehensive Metabolic Panel] Stat Lab 09/09/25 09:08 Completed Lactate (Lactic Acid) Stat Lab 09/09/25 09:08 Completed Procalcitonin Stat Lab 09/09/25 09:08 Completed UA [Urinalysis] Stat Lab 09/09/25 13:32 Completed Urine Culture Stat Lab 09/09/25 13:32 Completed Ketorolac Inj [Toradol Inj] Med 09/09/25 11:59 Discontinued 15 mg IVP X1 ONE Morphine* Inj Med 09/09/25 11:59 Discontinued 4 mg IVP X1 ONE Ondansetron Inj [Zofran Inj] Med 09/09/25 11:59 Discontinued 4 mg IVP X1 ONE Sodium Chloride 0.9% 1000 ml [Ns] 1,000 ml Med 09/09/25 11:35 Discontinued IV 999 mls/hr cefTRIAXone [Rocephin] 2 gm Med 09/09/25 11:58 Discontinued SODIUM CHLORIDE 0.9% (Popper) [Ns 0.9% (P)] 50 ml IV X1 Oxygen Delivery NOW RT 09/09/25 11:35 Completed Vital Signs Vital signs: Vital Signs Temperature 97.6 F 09/09/25 09:02 Pulse Rate 105 H 09/09/25 09:02 Respiratory Rate 17 09/09/25 09:02 Blood Pressure 143/89 H 09/09/25 09:02 Pulse Oximetry (%) 98 09/09/25 09:02 Oxygen Delivery Method Room Air 09/09/25 09:02 Extremity Injury, Lower Patient data External records reviewed:: [facility] previous records Clinical information provided by:: patient Social determinants that could affect healthcare access:: none Patient has the following chronic illnesses:: HYPERTENSION How is presenting disease/condition affected by chronic disease/condition?: uneffected by Evaluation data The following diagnostics were reviewed and interpreted by me:: radiology exam(s) Lab and/or radiology exams considered but not ordered:: CT KNEE Interpretation Summary: NO EVIDENCE OF SEPTIC RIGHT KNEE Medications / Prescriptions Medications or Prescriptions considered but not ordered:: VANCOMYCIN Medication administrations:: Medication Administration History Discontinued Medications Sodium Chloride (Ns) 1,000 mls @ 999 mls/hr IV .Q1H1M ONE Stop: 09/09/25 12:35 Last Infusion: 09/09/25 13:04 Dose: Infused Documented By: Admin: 09/09/25 12:03 Dose: 999 mls/hr Documented By: VG Ceftriaxone Sodium 2 gm/ (Sodium Chloride) 50 mls @ 100 mls/hr IV X1 ONE Stop: 09/09/25 12:27 Last Infusion: 09/09/25 13:08 Dose: Infused Documented By: Admin: 09/09/25 12:13 Dose: 100 mls/hr Documented By: ZHEN Ketorolac Tromethamine (Ketorolac Inj 30 Mg/Ml Vial) 15 mg IVP X1 ONE Stop: 09/09/25 12:00 Last Admin: 09/09/25 12:13 Dose: 15 mg Documented By: ZHEN Morphine Sulfate (Morphine Sulf Inj 4 Mg/Ml Vial) 4 mg IVP X1 ONE Stop: 09/09/25 12:00 Last Admin: 09/09/25 12:11 Dose: 4 mg Documented By: ZHEN Ondansetron HCl (Ondansetron Inj 2 Mg/Ml Inj 2 Ml) 4 mg IVP X1 ONE; Protocol Stop: 09/09/25 12:00 Last Admin: 09/09/25 12:09 Dose: 4 mg Documented By: ZHEN N/A Consultations Consultation(s) initiated? (list below): No Diagnosis Most likely diagnosis given after review of the tests above:: RIGHT KNEE PAIN, HEMATOMA RIGHT KNEE, OA RIGHT KNEE Admission Indicated Admission indicated?: not indicated Admission Request Was there a request for admission?: No Disposition Plan Disposition Plan: Discharge Discharge Attestation Discharge Attestation: The patient and all family members were given an opportunity to ask questions and understood the discharge instructions. Discharge instructions specifically effects, indications for sooner follow up or return to the emergency department, and the expected course of current diagnosis. Patient condition: Stable Discharge Plan Plan Patient Disposition: HOME (Self Care) Patient condition on transfer: Stable Prescriptions/Referrals Prescriptions/Med Rec: New tramadol 50 mg tablet 50 mg PO TID MDD 3 PRN (Reason: pain) Qty: 30 0RF No Action alprazolam 1 mg tablet 0.5 - 1 mg PO QDAY PRN (Reason: Anxiety) Patient Comments: TAKE 1/2-1 TABLET BY MOUTH EVERY DAY NEEDED tizanidine 4 mg tablet 4 mg PO BID nifedipine 60 mg tablet extended release 24 hr 60 mg PO QDAY pregabalin 100 mg capsule 100 mg PO TID Patient Comments: TAKE 1 CAPSULE BY MOUTH THREE TIMES A DAY trazodone 100 mg tablet 50 mg PO HS PRN (Reason: Insomnia) Rx Instructions: 50mg at bedtime as needed buspirone 30 mg tablet 30 mg PO BID montelukast 10 mg tablet 10 mg PO HS oxybutynin chloride 5 mg tablet 5 mg PO BID rosuvastatin 20 mg tablet 20 mg PO QDAY ipratropium-albuterol 0.5 mg-3 mg(2.5 mg base)/3 mL solution for nebulization 3 ml inhalation QID PRN (Reason: shortness of breath or wheezing) Qty: 180 0RF hydrocodone-acetaminophen 5-325 mg tablet 1 tab PO Q8H MDD 3 tab PRN (Reason: pain) Qty: 7 0RF hydrocodone-acetaminophen 5-325 mg tablet 2 tab PO Q8H MDD 6 PRN (Reason: pain) Qty: 20 0RF albuterol sulfate 90 mcg/actuation HFA aerosol inhaler 2 puff INHALATION TID lisinopril [Zestril] 40 mg tablet 40 mg PO QDAY duloxetine 60 mg capsule,delayed release(DR/EC) 60 mg PO BID omeprazole 40 mg Capsule,Delayed Release(Dr/Ec) 40 mg PO QDAY Rx Instructions: 30 minutes before morning meal hydrochlorothiazide 12.5 mg Tablet 12.5 mg PO QDAY ibuprofen 600 mg tablet 600 mg PO Q6H PRN (Reason: pain) Qty: 30 0RF acetaminophen [Tylenol Extra Strength] 500 mg tablet 1,000 mg PO Q6H PRN (Reason: pain) Qty: 30 0RF prednisone 50 mg tablet 50 mg PO QDAY Qty: 3 0RF cefdinir 300 mg capsule 300 mg PO BID Qty: 14 0RF hydrocodone-acetaminophen 5-325 mg tablet 1 tab PO BID MDD 10mg PRN (Reason: pain) Qty: 10 0RF Referrals: Fidelina Vaughn MD [Primary Care Provider, Family Practice] - In 1 week Problem List Clinical Impression: Knee pain, right, Hematoma of right knee region, Osteoarthritis of right knee Patient/Caregiver Discharge Instructions Discharge Activity: activity as tolerated Other Activity Instructions:: Rest the right knee. Keep your activity to a minimum. Education Materials: Knee Pain, ED Osteoarthritis Additional Instructions: Take medications as prescribed. You can also take Tylenol 500 mg 1 to 2 tablets every 6 hours along with Advil gelcaps 200 mg take 2 gelcaps every 6 hours along with the Tylenol. Follow-up with your primary care doctor. Consider referral to orthopedics for further evaluation. Print Language: Ecuadorean Stand Alone Forms: [facility] Award Info., Patient Portal Info Letter
--- NOTE | 2025-09-27 06:56 | PD.EDLOWEX ---
Lower Extremity Injury RME/HPI General Chief Complaint: Extremity Injury, Lower Stated Complaint: INFECTED R) KNEE Time Seen by Provider: 09/09/25 09:30 Source: patient Arrival date/time: 09/09/25 08:33 Mode of arrival: ambulatory Limitations: no limitations RME / HPI Place: home Severity: moderate Severity scale (1-10): 6 Relieving factors: nothing Exacerbating factors: movement Context: direct blow RME / HPI Narrative: 09/09/25 08:33 60-year-old female with no known medical history presents to the emergency room with a chief complaint of swelling, warmth, pus draining from the right knee. I have greeted and performed a focused initial assessment of this patient. A comprehensive ED assessment and evaluation of the patient, analysis of all test results, and completion of the medical decision making process will be conducted by additional ED providers. Exam: Tenderness swelling bruising to the patient's right knee GCS 15 Related Data Home Medications ?Medication ?Instructions ?Recorded ?Confirmed alprazolam 1 mg tablet 0.5 - 1 mg PO QDAY PRN Anxiety 12/03/21 07/02/24 nifedipine 60 mg tablet,extended 60 mg PO QDAY 12/03/21 07/02/24 release 24 hr pregabalin 100 mg capsule 100 mg PO TID 12/03/21 07/02/24 tizanidine 4 mg tablet 4 mg PO BID 12/03/21 07/02/24 albuterol sulfate 90 mcg/actuation 2 puff inhalation TID 01/07/23 07/02/24 aerosol inhaler duloxetine 60 mg capsule,delayed 60 mg PO BID 01/07/23 07/02/24 release lisinopril 40 mg tablet (Zestril) 40 mg PO QDAY 01/07/23 07/02/24 buspirone 30 mg tablet 30 mg PO BID 01/29/23 07/02/24 montelukast 10 mg tablet 10 mg PO HS 01/29/23 07/02/24 oxybutynin chloride 5 mg tablet 5 mg PO BID 01/29/23 07/02/24 rosuvastatin 20 mg tablet 20 mg PO QDAY 01/29/23 07/02/24 trazodone 100 mg tablet 50 mg PO HS PRN Insomnia 01/29/23 07/02/24 hydrochlorothiazide 12.5 mg tablet 12.5 mg PO QDAY 09/27/23 07/02/24 omeprazole 40 mg capsule,delayed 40 mg PO QDAY 09/27/23 07/02/24 release Previous Rx's ?Medication ?Instructions ?Recorded ipratropium 0.5 mg-albuterol 3 mg 3 ml inhalation QID PRN shortness 02/01/23 (2.5 mg base)/3 mL nebulization of breath or wheezing #180 mL soln hydrocodone 5 mg-acetaminophen 325 1 tab PO Q8H PRN pain #7 tabs 07/05/24 mg tablet acetaminophen 500 mg tablet 1,000 mg (2 x 500 mg) PO Q6H PRN 08/26/24 (Tylenol Extra Strength) pain #30 tabs ibuprofen 600 mg tablet 600 mg PO Q6H PRN pain #30 tabs 08/26/24 cefdinir 300 mg capsule 300 mg PO BID #14 caps 01/22/25 prednisone 50 mg tablet 50 mg PO QDAY #3 tabs 01/22/25 hydrocodone 5 mg-acetaminophen 325 2 tab PO Q8H PRN pain #20 tabs 07/28/25 mg tablet hydrocodone 5 mg-acetaminophen 325 1 tab PO BID PRN pain #10 tabs 08/29/ mg tablet tramadol 50 mg tablet 50 mg PO TID PRN pain #30 tabs 09/09/25 Allergies Allergy/AdvReac Type Severity Reaction Status Date / Time No Known Allergies Allergy Verified 09/09/25 08:36 Review of Systems Review of Systems Systems Reviewed: All systems reviewed, normal except as documented Past Medical History Past Medical History NEUROLOGIC: Positive Head Trauma; Negative Neurological Disorders, Cerebrovascular Accident, Transient Ischemic Attacks (TIA), Dementia, Alzheimer's Disease, Parkinson's Disease, Brain Tumor, Meningitis, Seizures, Epilepsy, Multiple Sclerosis, Cerebral Palsy, Amyotrophic Lateral Sclerosis (ALS/Jenna Gehrig's), Guillain-[place] Syndrome, Spina Bifida, Paralysis, Peripheral Neuropathy, Montes's Palsy, Subdural Hematoma, Migraine, Spinal Cord Injury or Traumatic Brain Injury CARDIAC: Positive Cardiac Disorders, Angina, Hypercholesterolemia, Edema and Hypertension; Negative Myocardial Infarction, Cardiac Arrhythmia, Atrial Fibrillation, Heart Murmur, Coronary Artery Disease, Atherosclerotic Heart Disease, Peripheral Vascular Disease, Aneurysm, Congestive Heart Failure, Congenital Heart Disease, Valvular Heart Disease, Rheumatic Fever, Cardiomyopathy, Pericarditis, Cellulitis, Deep Vein Thrombosis, Hypotension or Varicose Veins RESPIRATORY: Positive Chronic Obstructive Pulmonary Disease (COPD), Asthma, Bronchitis, Pneumonia and Sleep Apnea; Negative Emphysema, Pulmonary Fibrosis, Cystic Fibrosis, Tuberculosis, Pulmonary Embolism or Pulmonary Edema GASTROINTESTINAL: Positive Gastrointestinal Disorders, Hiatal Hernia, Hemorrhoids, Gastroesophageal Reflux Disease and Obesity; Negative Hepatitis, Cirrhosis, Pancreatitis, Celiac Disease, Gall Bladder Disease, Gastrointestinal Bleed, Esophageal Varices, Villegas's Esophagus, Colitis, Ulcerative Colitis, Diverticulitis, Diverticulosis, Ulcer, Colorectal Cancer, Irritable Bowel, Crohn's Disease or Obstructive Bowel GENITOURINARY: Negative Genitourinary Disorders, Renal Disease, Kidney Stones, Polycystic Kidney Disease, Neurogenic Bladder, Inguinal Hernia, Dialysis, Prostate Cancer or Benign Prostatic Hyperplasia REPRODUCTIVE: Positive Previous Pregnancies; Negative Breast Cancer, Endometriosis, Genital Herpes, Gonorrhea, Pelvic Inflammatory Disease, Syphilis, Testicular Cancer or Uterine Prolapse MUSCULOSKELETAL: Positive Musculoskeletal Disorders, Arthritis, Carpal Tunnel Syndrome, Fractures and Degenerative Joint Disease; Negative Muscular Dystrophy, Myasthenia Gravis, Marfan's Syndrome, Bone Cancer, Rheumatoid Arthritis, Osteoporosis, Degenerative Disk Disease, Gout, Scoliosis, Fibromyalgia, Osteomyelitis or Poliovirus ENT: Positive Cataracts and Head Trauma; Negative Glaucoma, Blind, Retinal Detachment, Macular Degeneration, Ear Infection, Deafness or Eye Prosthesis ENDOCRINE: Negative Endocrine Disorders, Diabetes Mellitus Type 1, Diabetes Mellitus Type 2, Hypoglycemia, Latonia's Syndrome, Miko's Disease, Hyperthyroidism, Hypothyroidism, Parathyroid Disease, Pituitary Disease, Systemic Lupus Erythematosus, Syndrome of Inappropriate Antidiuretic Hormone (SIADH), Adrenal Disease or Graves' Disease HEMATOLOGIC: Positive Blood Disorders and Anemia; Negative Leukemia, Hemophilia, Thalassemia, Sickle Cell Disease or Clotting Problems PSYCHO/SOCIAL: Positive Depression and Anxiety; Negative Psychiatric Problems, Schizophrenia, Recreational Drug Use, Bipolar Disorder, Behavior Problems, Self-Mutilation, Attention Deficit Disorder, Attention Deficit Hyperactivity Disorder, Depression, Post Traumatic Stress Disorder or Eating Disorder OTHER HISTORY: Positive Hospitalization, Blood Transfusions, Chicken Pox, Measles and Mumps; Negative Autoimmune Disease, Down Syndrome, Autism, Developmental Delay, Falls, Blood Transfusion Reaction, Anesthesia Reactions, Organ Transplant, Chemotherapy, Radiation Therapy, Hyperbaric Therapy, MRSA, VRSA, Vancomycin-Resistant Enterococci, Human Immunodeficiency Virus (HIV), Rubella ([place] Measles), Pertussis, Clostridium Difficile, Cancer, Breast Cancer, Cervical Cancer, Colorectal Cancer, Lung Cancer, Ovarian Cancer, Prostate Cancer or Testicular Cancer Family History FAMILY HISTORY: Positive Family Respiratory Disorders, Family Cardiac Disorders and Family Surgery; Negative Family Psychiatric Problems, Family Gastrointestinal Problems, Family Cancer or Family Anesthesia Reaction Surgical History SURGICAL: Positive Tonsillectomy, Abdominal Surgery, Joint Replacement, Hysterectomy and Tubal Ligation; Negative Cardiac Surgery, Open Heart Surgery, Coronary Artery Bypass Graft, Valve Replacement, Vascular Surgery, Coronary Stent, Cardiac Catheterization, Pacemaker, Angiogram, Auto Implanted Cardiovert Defib, Carotid Endarterectomy, Endocrine Surgery, Thyroidectomy, Ear Surgery, Tympanostomy Tube, Eye Surgery, Nose Surgery, Oral Surgery, Adenoidectomy, Cochlear Implant, Corneal Transplant, Throat Surgery, Tracheostomy, Gastric Bypass Surgery, Gastrostomy, Bowel Surgery, Nephrectomy, Transurethral Resection, Amputation, Open Reduction Internal Fixation, Arthroscopy, Neurologic Surgery, Brain Shunt, Mastectomy, Lumpectomy, Section, Vasectomy or Organ Transplant Social History SMOKING STATUS: Never smoker SECOND HAND EXPOSURE: No SUBSTANCE USE: does not use ED Exam General Limitations: Present no limitations General appearance: Present alert and in no apparent distress Head Head exam: Present atraumatic Eye Eye exam: Present normal appearance, PERRL and EOMI ENT ENT exam: Present normal exam, normal oropharynx and mucous membranes moist Neck Neck exam: Present normal inspection, full ROM and trachea midline Chest Chest inspection: Present normal inspection and symmetric chest wall rise Respiratory Respiratory exam: Present normal lung sounds bilaterally Cardiovascular Cardiovascular exam: Present regular rate, normal rhythm and normal heart sounds Abdominal Exam Abdominal exam: Present soft and normal bowel sounds Extremities Exam Extremities exam: Present full ROM and tenderness (RIGHT KNEE WITH ECCHYMOSIS AND SMALL HEMATOMA) Back Exam Back exam: Present normal inspection and full ROM Neurological Exam Neurological exam: Present alert, oriented X3 and CN II-XII intact Psychiatric Psychiatric exam: Present normal affect and normal mood Skin Skin exam: Present warm, dry, intact and normal color Course Quality Measures none Orders Category Date Time Status Radiologist Physician NOW Care 09/09/25 11:35 Completed Continuous Pulse Oximetry NOW Care 09/09/25 11:35 Completed Insert IV NOW Care 09/09/25 11:35 Completed Blood Culture (Lab) Stat Lab 09/09/25 09:11 Completed CBC Stat Lab 09/09/25 09:08 Completed CMP [Comprehensive Metabolic Panel] Stat Lab 09/09/25 09:08 Completed Lactate (Lactic Acid) Stat Lab 09/09/25 09:08 Completed Procalcitonin Stat Lab 09/09/25 09:08 Completed UA [Urinalysis] Stat Lab 09/09/25 13:32 Completed Urine Culture Stat Lab 09/09/25 13:32 Completed Ketorolac Inj [Toradol Inj] Med 09/09/25 11:59 Discontinued 15 mg IVP X1 ONE Morphine* Inj Med 09/09/25 11:59 Discontinued 4 mg IVP X1 ONE Ondansetron Inj [Zofran Inj] Med 09/09/25 11:59 Discontinued 4 mg IVP X1 ONE Sodium Chloride 0.9% 1000 ml [Ns] 1,000 ml Med 09/09/25 11:35 Discontinued IV 999 mls/hr cefTRIAXone [Rocephin] 2 gm Med 09/09/25 11:58 Discontinued SODIUM CHLORIDE 0.9% (Popper) [Ns 0.9% (P)] 50 ml IV X1 Oxygen Delivery NOW RT 09/09/25 11:35 Completed Vital Signs Vital signs: Vital Signs Temperature 97.6 F 09/09/25 09:02 Pulse Rate 105 H 09/09/25 09:02 Respiratory Rate 17 09/09/25 09:02 Blood Pressure 143/89 H 09/09/25 09:02 Pulse Oximetry (%) 98 09/09/25 09:02 Oxygen Delivery Method Room Air 09/09/25 09:02 Extremity Injury, Lower Patient data External records reviewed:: [facility] previous records Clinical information provided by:: patient Social determinants that could affect healthcare access:: none Patient has the following chronic illnesses:: HYPERTENSION, ASTHMA, GERD, NEUROPATHY, HYPERLIPIDEMIA How is presenting disease/condition affected by chronic disease/condition?: uneffected by Evaluation data The following diagnostics were reviewed and interpreted by me:: radiology exam(s) Lab and/or radiology exams considered but not ordered:: CT KNEE Interpretation Summary: NO EVIDENCE OF A SEPTIC KNEE Medications / Prescriptions Medications or Prescriptions considered but not ordered:: VANCOMYCIN Medication administrations:: Medication Administration History Discontinued Medications Sodium Chloride (Ns) 1,000 mls @ 999 mls/hr IV .Q1H1M ONE Stop: 09/09/25 12:35 Last Infusion: 09/09/25 13:04 Dose: Infused Documented By: Admin: 09/09/25 12:03 Dose: 999 mls/hr Documented By: VG Ceftriaxone Sodium 2 gm/ (Sodium Chloride) 50 mls @ 100 mls/hr IV X1 ONE Stop: 09/09/25 12:27 Last Infusion: 09/09/25 13:08 Dose: Infused Documented By: Admin: 09/09/25 12:13 Dose: 100 mls/hr Documented By: ZHEN Ketorolac Tromethamine (Ketorolac Inj 30 Mg/Ml Vial) 15 mg IVP X1 ONE Stop: 09/09/25 12:00 Last Admin: 09/09/25 12:13 Dose: 15 mg Documented By: ZHEN Morphine Sulfate (Morphine Sulf Inj 4 Mg/Ml Vial) 4 mg IVP X1 ONE Stop: 09/09/25 12:00 Last Admin: 09/09/25 12:11 Dose: 4 mg Documented By: ZHEN Ondansetron HCl (Ondansetron Inj 2 Mg/Ml Inj 2 Ml) 4 mg IVP X1 ONE; Protocol Stop: 09/09/25 12:00 Last Admin: 09/09/25 12:09 Dose: 4 mg Documented By: ZHEN ABOVE Consultations Consultation(s) initiated? (list below): No Diagnosis Most likely diagnosis given after review of the tests above:: RIGHT KNEE PAIN, HEMATOMA RIGHT KNEE, OA RIGHT KNEE Admission Indicated Admission indicated?: not indicated Explain why admission is indicated or not indicated:: OUPATIENT FOLOWUP Admission Request Was there a request for admission?: No Disposition Plan Disposition Plan: Discharge Discharge Attestation Discharge Attestation: The patient and all family members were given an opportunity to ask questions and understood the discharge instructions. Discharge instructions specifically effects, indications for sooner follow up or return to the emergency department, and the expected course of current diagnosis. Patient condition: Stable Discharge Plan Plan Patient Disposition: HOME (Self Care) Patient condition on transfer: Stable Prescriptions/Referrals Prescriptions/Med Rec: New tramadol 50 mg tablet 50 mg PO TID MDD 3 PRN (Reason: pain) Qty: 30 0RF No Action alprazolam 1 mg tablet 0.5 - 1 mg PO QDAY PRN (Reason: Anxiety) Patient Comments: TAKE 1/2-1 TABLET BY MOUTH EVERY DAY NEEDED tizanidine 4 mg tablet 4 mg PO BID nifedipine 60 mg tablet extended release 24 hr 60 mg PO QDAY pregabalin 100 mg capsule 100 mg PO TID Patient Comments: TAKE 1 CAPSULE BY MOUTH THREE TIMES A DAY trazodone 100 mg tablet 50 mg PO HS PRN (Reason: Insomnia) Rx Instructions: 50mg at bedtime as needed buspirone 30 mg tablet 30 mg PO BID montelukast 10 mg tablet 10 mg PO HS oxybutynin chloride 5 mg tablet 5 mg PO BID rosuvastatin 20 mg tablet 20 mg PO QDAY ipratropium-albuterol 0.5 mg-3 mg(2.5 mg base)/3 mL solution for nebulization 3 ml inhalation QID PRN (Reason: shortness of breath or wheezing) Qty: 180 0RF hydrocodone-acetaminophen 5-325 mg tablet 1 tab PO Q8H MDD 3 tab PRN (Reason: pain) Qty: 7 0RF hydrocodone-acetaminophen 5-325 mg tablet 2 tab PO Q8H MDD 6 PRN (Reason: pain) Qty: 20 0RF albuterol sulfate 90 mcg/actuation HFA aerosol inhaler 2 puff INHALATION TID lisinopril [Zestril] 40 mg tablet 40 mg PO QDAY duloxetine 60 mg capsule,delayed release(DR/EC) 60 mg PO BID omeprazole 40 mg Capsule,Delayed Release(Dr/Ec) 40 mg PO QDAY Rx Instructions: 30 minutes before morning meal hydrochlorothiazide 12.5 mg Tablet 12.5 mg PO QDAY ibuprofen 600 mg tablet 600 mg PO Q6H PRN (Reason: pain) Qty: 30 0RF acetaminophen [Tylenol Extra Strength] 500 mg tablet 1,000 mg PO Q6H PRN (Reason: pain) Qty: 30 0RF prednisone 50 mg tablet 50 mg PO QDAY Qty: 3 0RF cefdinir 300 mg capsule 300 mg PO BID Qty: 14 0RF hydrocodone-acetaminophen 5-325 mg tablet 1 tab PO BID MDD 10mg PRN (Reason: pain) Qty: 10 0RF Referrals: Fidelina Vaughn MD [Primary Care Provider, Family Practice] - In 1 week Problem List Clinical Impression: Knee pain, right, Hematoma of right knee region, Osteoarthritis of right knee Patient/Caregiver Discharge Instructions Discharge Activity: activity as tolerated Other Activity Instructions:: Rest the right knee. Keep your activity to a minimum. Education Materials: Knee Pain, ED Osteoarthritis Additional Instructions: Take medications as prescribed. You can also take Tylenol 500 mg 1 to 2 tablets every 6 hours along with Advil gelcaps 200 mg take 2 gelcaps every 6 hours along with the Tylenol. Follow-up with your primary care doctor. Consider referral to orthopedics for further evaluation. Print Language: [place]an Stand Alone Forms: Rocio Award Info., Patient Portal Info Letter
== END 2025-09-09 15:03 | disposition home or self-care (01) ==
PROVIDERS: Nurse Practitioner Family; Emergency Provider Family Medicine; PCP Family Medicine
DX: S80.01XA Contusion of right knee, initial encounter (principal); M17.11 Unilateral primary osteoarthritis, right knee; X58.XXXA Exposure to other specified factors, initial encounter
CPT/HCPCS: 36415; 80053; 81001; 83605; 84145; 85025; 87040; 87086; 96365; 96375; 99285; J0696; J1885; J2270; J2405; J7030; J7050